=== PATIENT | male | born 1930 | race Caucasian/White ===

== ENCOUNTER 2016-11-18 21:36 | Inpatient (IN) | payer MEDICARE ==
--- NOTE | 2016-11-18 21:56 | ER Document Report ---
ED Cardiac - General Mode of Arrival: Medic Information source: Patient - HPI Patient complains to provider of: Chest tightness Was the onset of pain: Sudden When did pain begin: 18:30 Is the pain a: New problem Chest pain location: Other - left lower chest Quality of pain: Tightness <ZAHIRA HOFFMAN - Last Filed: 11/18/16 22:42> <HECTORSHELLIEKELLY - Last Filed: 11/19/16 00:39> - General Chief Complaint: Chest Pain Stated Complaint: CHEST PAIN Time Seen by Provider: 11/18/16 21:47 Notes: Patient is an 86 year old male presenting to the emergency department for left- sided chest pain. Patient's pain was onset at 18:30 while the patient was watching television. Patient states his pain is in the left-lower chest and is described as a tightness. Patient's pain is exacerbated with deep breathing but denies any cough or abdominal pain. Patient was brought in via EMS and was given 81 mg x4 of Aspirin and 0.4 mg Nitroglycerin. Patient is taking Plavix and has a cardiac history of a hypertension, hypercholesterolemia, A-fib, and stent x1 in the late 90s. Patient states he has been followed for his heart by his yeast maker in [place] and has had multiple stress tests completed. Patient has been living in this area for 1 year and is staying with his daughter. Patient does not have a yeast maker here in town but does have a PCP, Dr. Espinosa. Patient is a former smoker and tobacco user. Patient has no known drug allergies and is also not allergic to IV contrast or dye. Patient takes Plavix, Lasix, Metoprolol, Synthroid, and Allopurinol for his Gout. (ZAHIRA HOFFMAN) - Related Data Allergies/Adverse Reactions: No Known Allergies Allergy (Unverified 11/18/16 21:44) Past Medical History - General Information source: Patient - Social History Smoking Status: Former Smoker Cigarette use (# per day): No Chew tobacco use (# tins/day): No - former, quit in 1979 Smoking Education Provided: No Frequency of alcohol use: None - former Drug Abuse: None Family History: None Patient has suicidal ideation: No Patient has homicidal ideation: No - Past Medical History Cardiac Medical History: Reports: Hx Atrial Fibrillation, Hx Hypercholesterolemia, Hx Hypertension Neurological Medical History: Reports: Hx Cerebrovascular Accident - 2013 Musculoskeltal Medical History: Reports Hx Gout Past Surgical History: Reports: Hx Bowel Surgery - colon resection, Hx Cardiac Catheterization - stent x1 (), Hx Cholecystectomy <ZAHIRA HOFFMAN - Last Filed: 11/18/16 22:42> Review of Systems - Review of Systems Constitutional: No symptoms reported EENT: No symptoms reported Cardiovascular: See HPI, Chest pain Respiratory: No symptoms reported Gastrointestinal: No symptoms reported Genitourinary: No symptoms reported Male Genitourinary: No symptoms reported Musculoskeletal: No symptoms reported Skin: No symptoms reported Hematologic/Lymphatic: No symptoms reported Neurological/Psychological: No symptoms reported -: Yes All other systems reviewed and negative <ZAHIRA HOFFMAN - Last Filed: 11/18/16 22:42> Physical Exam - Vital signs Interpretation: Hypotensive, Tachycardic <ZAHIRA HOFFMAN - Last Filed: 11/18/16 22:42> <KELLY CAMACHO - Last Filed: 11/19/16 00:39> - Vital signs Vitals: Resp Pulse Ox 23 H 94 11/18/16 21:39 11/18/16 21:39 - Notes Notes: VITALS: During exam patient is tachycardic, hypotensive, and has an O2 saturation of 94-96% on RA. GENERAL: Alert, interacts well. Mild distress. HEAD: Normocephalic, atraumatic. EYES: Pupils equal, round, and reactive to light. Extraocular movements intact. ENT: Oral mucosa moist, tongue midline. NECK: Full range of motion. Supple. Trachea midline. LUNGS: Clear to auscultation bilaterally, no wheezes, rales, or rhonchi. No respiratory distress. No chest wall tenderness to palpation. HEART: Tachycardia. Irregularly irregular. No murmurs, gallops, or rubs. ABDOMEN: Soft, non-tender. Non-distended. Bowel sounds present in all 4 quadrants. EXTREMITIES: Moves all 4 extremities spontaneously. No edema, radial and dorsalis pedis pulses 2/4 bilaterally. No cyanosis. NEUROLOGICAL: Alert and oriented x3. Normal speech. PSYCH: Normal affect, normal mood. SKIN: Warm, dry, normal turgor. No rashes or lesions noted. (ZAHIRA HOFFMAN) Course - Laboratory Result Diagrams: 11/18/16 22:00 11/18/16 22:00 <ZAHIRA HOFFMAN - Last Filed: 11/18/16 22:42> - Laboratory Result Diagrams: 11/18/16 22:00 11/18/16 22:00 <KELLY CAMACHO - Last Filed: 11/19/16 00:39> - Re-evaluation Re-evalutation: 11/19/16 00:32 CBC shows slight anemia with hemoglobin 13, platelets low at 145, CMP shows elevated BUN 33, troponin negative at 0.015, proBNP elevated at 4350. Chest x- ray shows small bilateral pleural effusions and cannot exclude associated atelectasis or infiltrate in the right lung base, cardiomegaly. Given his intermittent hypotension as well as his tachycardia CT angiogram of the chest was ordered and shows small right pleural effusion and some associated airspace consolidation most consistent with atelectatic changes as well as a 2.3 cm in diameter spiculated mass in the right midlung field anteriorly which may represent focal airspace consolidation versus a mass. Family was informed of this finding. There is no pulmonary embolism. 11/19/16 00:38 Patient had received aspirin and nitroglycerin from EMS. It did slightly relieve his pain. (KELLY CAMACHO) - Vital Signs Vital signs: Temp Pulse Resp BP Pulse Ox 133 H 20 108/90 H 95 11/18/16 21:50 11/19/16 00:24 11/19/16 00:24 11/19/16 00:24 - Laboratory Laboratory results interpreted by me: 11/18/16 11/18/16 11/18/16 22:00 22:00 22:00 RBC 4.29 L Hgb 13.0 L RDW 15.5 H Plt Count 145 L Carbon Dioxide 31 H BUN 33 H ALT 20 L Creatine Kinase 53 L NT-Pro-B Natriuret Pep 4350 H Total Protein 5.9 L Albumin 3.1 L - EKG Interpretation by Me Additional EKG results interpreted by me: 11/19/16 00:36 EKG shows atrial fibrillation at a rate of 14, ranges between 74 and 138, right bundle branch block, left anterior hemiblock, there are T-wave inversions in V2 and V3, no ST segment elevations or depressions, no obvious ischemia per my interpretation. There are no old EKGs available for comparison. (KELLY CAMACHO ) Discharge <ZAHIRA HOFFMAN - Last Filed: 11/18/16 22:42> - Discharge Admitting Provider: Hospitalist - [facility] Admitted: Telemetry <KELLY CAMACHO - Last Filed: 11/19/16 00:39> - Discharge Clinical Impression: Chest pain, rule out acute myocardial infarction, Elevated brain natriuretic peptide (BNP) level Atrial fibrillation Qualifiers: Atrial fibrillation type: chronic Qualified Code(s): I48.2 - Chronic atrial fibrillation Condition: Fair Disposition: ADMITTED OBSERVATION Scribe Attestation: 11/19/16 00:38 I personally performed the services described in the documentation, reviewed and edited the documentation which was dictated to the scribe in my presence, and it accurately records my words and actions. (KELLY CAMACHO) Scribe Documentation - Scribe Written by Parth:: Parth Liang 11/18/2016 22:36 acting as scribe for :: Jaime <ZAHIRA HOFFMAN - Last Filed: 11/18/16 22:42>
[2016-11-18 22:10] LABS: HEMATOCRIT 39.1 % (37.9-51.0); HGB HCT DIFFERENCE -0.1; MEAN CORPUSCULAR HEMOGLOBIN 30.3 pg (27.0-33.4); MEAN CORPUSCULAR HGB CONC 33.2 g/dL (32.0-36.0); MEAN CORPUSCULAR VOLUME 91 fl (80-97); RED BLOOD COUNT 4.29 10^6/uL (4.35-5.55); RED CELL DISTRIBUTION WIDTH 15.5 % (11.5-14.0); WHITE BLOOD COUNT 8.8 10^3/uL (4.0-10.5)
--- NOTE | 2016-11-18 22:14 | RADIOLOGY REPORT (SQ) ---
EXAM DESCRIPTION: CHEST SINGLE VIEW COMPLETED DATE/TIME: 11/18/2016 10:07 pm REASON FOR STUDY: cp COMPARISON: None. EXAM PARAMETERS: NUMBER OF VIEWS: One view. TECHNIQUE: Single frontal radiographic view of the chest acquired. RADIATION DOSE: NA LIMITATIONS: None. FINDINGS: LUNGS AND PLEURA: There is blunting of the costophrenic angles suggesting small bilateral pleural effusions and I cannot exclude some associated atelectasis or infiltrate in the right lung ba se. MEDIASTINUM AND HILAR STRUCTURES: No masses. Contour normal. HEART AND VASCULAR STRUCTURES: Cardiac silhouette is enlarged. There is mild pulmonary vascular shaun estion. BONES: Degenerative changes are identified in the thoracic spine. HARDWARE: None in the chest. OTHER: No other significant finding. IMPRESSION: Small bilateral pleural effusions and I cannot exclude some associated atelectasis or in filtrate in the right lung base. Cardiomegaly. Other findings as noted above TECHNICAL DOCUMENTATION: JOB ID: [id number]
[2016-11-18 22:29] LABS: BAND NEUTROPHILS % (MANUAL) 3 % (3-5); BASOPHILS % (MANUAL) 0 % (0-2); EOSINOPHILS % (MANUAL) 0 % (0-6); LYMPHOCYTES % (MANUAL) 31 % (13-45); TOTAL CELLS COUNTED 100
[2016-11-18 22:30] LABS: ANISOCYTOSIS SLIGHT; HYPOCHROMASIA SLIGHT; OVALOCYTES SLIGHT; PLATELET CLUMPS PRESENT; POIKILOCYTOSIS SLIGHT
[2016-11-18 22:36] LABS: ALANINE AMINOTRANSFERASE 20 U/L (21-72); ALBUMIN 3.1 g/dL (3.5-5.0); ALKALINE PHOSPHATASE 78 U/L (38-126); ANION GAP 10 (5-19); ASPARTATE AMINO TRANSFERASE 24 U/L (17-59); BILIRUBIN,DIRECT 0.3 mg/dL (0.0-0.4); BILIRUBIN,TOTAL 0.6 mg/dL (0.2-1.3); BLOOD UREA NITROGEN 33 mg/dL (7-20); CALCIUM 8.8 mg/dL (8.4-10.2); CARBON DIOXIDE 31 mmol/L (22-30); CHLORIDE 99 mmol/L (98-107); CREATINE KINASE 53 U/L (55-170); CREATININE RESULT 0.85 mg/dL (0.52-1.25); GLUCOSE 97 mg/dL (75-110); POTASSIUM 4.3 mmol/L (3.6-5.0); SODIUM 139.8 mmol/L (137-145); TOTAL PROTEIN 5.9 g/dL (6.3-8.2)
[2016-11-18 22:48] LABS: CREATINE KINASE MB 2.01 ng/mL (<4.55); TROPONIN I 0.015 ng/mL
[2016-11-18] MEDS ORDERED: FUROSEMIDE INJ/PF 40 MG/4 ML SDV IV ONE (23:05)
--- NOTE | 2016-11-18 23:38 | RADIOLOGY REPORT (SQ) ---
EXAM DESCRIPTION: CTA CHEST COMPLETED DATE/TIME: 11/18/2016 11:23 pm REASON FOR STUDY: hypotensive, tachycardic, CP, r/o PE COMPARISON: None. TECHNIQUE: CT scan of the chest performed using helical scanning technique with dynamic intravenous contrast injection. Images reviewed with lung, soft tissue and bone windows. Reconstructed coronal and sagittal MPR images reviewed. Additional 3 dimensional post-processing performed to develop Maximal Intensity Projection images ([place] P). All images stored on PACS. All CT scanners at this facility use dose modulation, iterative reconstruction, and/or weight based d osing when appropriate to reduce radiation dose to as low as reasonably achievable (ALARA). [facility]: Dose Right [facility]: CareDose [facility]: Dose Right [facility]: Teradose 4D [facility]: [facility] CONTRAST TYPE AND DOSE: contrast/concentration: Isovue 370.00 mg/ml; Total Contrast Delivered: 100.0 ml; Total Saline Delivered: 42.0 ml RENAL FUNCTION: Creatinine 0.85 RADIATION DOSE: Up-to-date CT equipment and radiation dose reduction techniques were employed. CTDIv ol: 13.8 - 15.0 mGy. DLP: 552 mGy-cm. . LIMITATIONS: None. FINDINGS: LUNGS AND PLEURA: Small right pleural effusion is identified. There is some minimal assoc iated airspace consolidation most consistent with atelectatic changes. 2.3 cm in diameter spiculated mass is identified in the right mid lung field anteriorly which may only represent focal airspace co nsolidation however the possibility of a mass cannot be excluded. Followup is recommended. AORTA AND GREAT VESSELS: No aneurysm or dissection. HEART: Small pericardial effusion is identified. PULMONARY ARTERIES: No emboli visualized in the main pulmonary arteries or the segmental branches. HILAR AND MEDIASTINAL STRUCTURES: Calcified right hilar and mediastinal lymph nodes are identified. HARDWARE: None in the chest. UPPER ABDOMEN: No significant findings. Limited exam. THYROID AND OTHER SOFT TISSUES: No masses. No adenopathy. BONES: No acute or significant finding. 3D MIPS: Confirm above findings. OTHER: No other significant finding. IMPRESSION: No evidence for pulmonary embolic disease. Small right pleural effusion is identified w ith some associated airspace consolidation most consistent with atelectatic changes. 2.[address] spiculated mass in the right mid lung field anteriorly which may only represent focal airspace co nsolidation however the possibility of a mass cannot be excluded. Followup is recommended. Small pe ricardial effusion. Other findings as noted above TECHNICAL DOCUMENTATION: JOB ID: [id number] Quality ID # [id number]: Final reports with documentation of one or more dose reduction techniques (e.g., Au tomated exposure control, adjustment of the mA and/or kV according to patient size, use of iterative reconstruction technique) 2010 [employer]- All Rights Reserved
[2016-11-19] MEDS ORDERED: HYDRALAZINE HCL INJ/PF 20 MG/1 ML SDV IV PRN (00:40)
[2016-11-19] MEDS ORDERED: ATORVASTATIN CALCIUM 40 MG TABLET PO SCH (00:45)
[2016-11-19 00:50] LABS: PROTHROMBIN TIME 13.4 SEC (11.4-15.4)
[2016-11-19 03:15] LABS: CREATINE KINASE MB 2.52 ng/mL (<4.55); TROPONIN I 0.02 ng/mL
--- NOTE | 2016-11-19 03:35 | PDOC H&P ---
History of Present Illness Admission Date/PCP: 11/19/16 00:36 MAYE CORTEZC Patient complains of: Left-sided chest pain History of Present Illness: CHANDRIKA FLORIAN is a 86 year old male with a past medical history of remote colon cancer, gout, atrial fibrillation, coronary artery disease with stent placement in the , generalized weakness with falls, hypertension and hypothyroidism. Patient has been in his usual state of health until approximately 12 hours prior to presentation noting left-sided chest pain with deep inspiration which is sharp in nature 3 out of 5 intensity without radiation he is unable to identify alleviating factors beyond rest he denies previous episode, recent viral illness, shortness of breath, nausea, vomiting, palpitations or diaphoresis. He denies recent change in medications. In the emergency room he has a workup suggestive of congestive heart failure, a CTA chest is negative for pulmonary emboli concerning for 2.3 cm right sided spiculated mass and small effusion. Also small pericardial effusion. He is referred to the hospitalist for admission. He is currently pain-free. Past Medical History Cardiac Medical History: Reports: Atrial Fibrillation, Congestive Heart Failure , Hyperlipidema, Hypertension Pulmonary Medical History: Reports: None Neurological Medical History: Reports: None Endocrine Medical History: Reports: Hypothyroidism Malignancy Medical History: Reports: Colorectal Cancer Musculoskeltal Medical History: Reports: Gout Past Surgical History Past Surgical History: Reports: Cardiac Catheterization - stent x1 (), Cholecystectomy, Other - Partial colectomy Social History Information Source: Patient Lives with: Family Smoking Status: Former Smoker Frequency of Alcohol Use: None Hx Recreational Drug Use: No Drugs: None - Advance Directive Resuscitation Status: Full Code Family History Family History: CAD, Hypertension, Other - Dementia Parental Family History Reviewed: Yes Children Family History Reviewed: Yes Sibling(s) Family History Reviewed.: Yes Medication/Allergy Home Medications: Allopurinol [Zyloprim 300 mg Tablet] 300 mg PO DAILY 11/19/16 Clopidogrel Bisulfate [Plavix 75 mg Tablet] 75 mg PO DAILY 11/19/16 Clopidogrel Bisulfate [Plavix 75 mg Tablet] 75 mg PO DAILY 11/19/16 Furosemide [Lasix] 40 mg PO DAILY 11/19/16 Levothyroxine Sodium [Synthroid 50 Mcg Tablet] 50 mcg PO DAILY 11/19/16 Metoprolol Succinate [Toprol Xl 50 mg Tab.sr] 150 mg PO DAILY 11/19/16 Allergies/Adverse Reactions: No Known Allergies Allergy (Unverified 11/18/16 21:44) Review of Systems Constitutional: ABSENT: chills, fever(s), headache(s), weight gain, weight loss Eyes: ABSENT: visual disturbances Ears: ABSENT: hearing changes Cardiovascular: ABSENT: chest pain, dyspnea on exertion, edema, orthropnea, palpitations Respiratory: ABSENT: cough, hemoptysis Gastrointestinal: ABSENT: abdominal pain, constipation, diarrhea, hematemesis, hematochezia, nausea, vomiting Genitourinary: ABSENT: dysuria, hematuria Musculoskeletal: ABSENT: joint swelling Integumentary: ABSENT: rash, wounds Neurological: ABSENT: abnormal gait, abnormal speech, confusion, dizziness, focal weakness, syncope Psychiatric: ABSENT: anxiety, depression, homidical ideation, suicidal ideation Endocrine: ABSENT: cold intolerance, heat intolerance, polydipsia, polyuria Hematologic/Lymphatic: ABSENT: easy bleeding, easy bruising Physical Exam Vital Signs: Temp Pulse Resp BP Pulse Ox 97.1 F 114 H 18 123/67 98 11/19/16 02:09 11/19/16 02:09 11/19/16 02:09 11/19/16 02:09 11/19/16 02:09 General appearance: PRESENT: no acute distress, cooperative, well-developed, well-nourished Head exam: PRESENT: atraumatic, normocephalic Eye exam: PRESENT: conjunctiva pink, EOMI, PERRLA. ABSENT: scleral icterus Ear exam: PRESENT: normal external ear exam Mouth exam: PRESENT: moist, tongue midline Neck exam: ABSENT: carotid bruit, JVD, lymphadenopathy, thyromegaly Respiratory exam: PRESENT: clear to auscultation jonathon, crackles. ABSENT: accessory muscle use, chest wall tenderness, decreased breath sounds, rales, rhonchi, wheezes Cardiovascular exam: PRESENT: irregular rhythm, tachycardia. ABSENT: diastolic murmur, rubs, systolic murmur Pulses: PRESENT: normal dorsalis pedis pul Vascular exam: PRESENT: normal capillary refill GI/Abdominal exam: PRESENT: normal bowel sounds, soft. ABSENT: distended, guarding, mass, organolmegaly, rebound, tenderness Rectal exam: PRESENT: deferred Extremities exam: PRESENT: full ROM. ABSENT: calf tenderness, clubbing, pedal edema Neurological exam: PRESENT: alert, awake, oriented to person, oriented to place , oriented to time, oriented to situation, CN II-XII grossly intact. ABSENT: motor sensory deficit Psychiatric exam: PRESENT: appropriate affect, normal mood. ABSENT: homicidal ideation, suicidal ideation Skin exam: PRESENT: dry, intact, warm. ABSENT: cyanosis, rash Results Laboratory Results: 11/19/16 02:02 CK-MB (CK-2) 2.52 Troponin I 0.020 Impressions: Chest X-Ray 11/18/16 21:38 IMPRESSION: Small bilateral pleural effusions and I cannot exclude some associated atelectasis or infiltrate in the right lung base. Cardiomegaly. Other findings as noted above Chest/Abdomen CTA 11/18/16 22:44 IMPRESSION: No evidence for pulmonary embolic disease. Small right pleural effusion is identified with some associated airspace consolidation most consistent with atelectatic changes. 2.3 cm in diameter spiculated mass in the right mid lung field anteriorly which may only represent focal airspace consolidation however the possibility of a mass cannot be excluded. Followup is recommended. Small pericardial effusion. Other findings as noted above Assessment & Plan - Diagnosis (1) Chest pain Is this a current diagnosis for this admission?: YesPlan: Atypical chest pain though the patient's pain is atypical and more suggestive of pericarditis there are multiple risk factors for coronary artery disease and subsequently will observe and evaluation of acute coronary syndrome versus coronary artery disease with anginal equivalents. Cardiac monitoring blood pressure Q6 hours ,TSH, lipid profile, serial cardiac enzymes and cardiac stress test. Given history of colon cancer, new spiculated lung mass and small pericardial effusion I suspect this is his source of pain. Will obtain ESR, 2D echo, oncology consultation. (2) Congestive heart failure Is this a current diagnosis for this admission?: YesPlan: Likely secondary to uncontrolled atrial fibrillation will optimize rate with gentle diuresis as he is already prerenal. (3) Pleuritic chest pain Is this a current diagnosis for this admission?: YesPlan: Given history of colon cancer, new spiculated lung mass and small pericardial effusion I suspect this is his source of pain. Will obtain ESR, 2D echo, oncology consultation. (4) Lung mass Is this a current diagnosis for this admission?: YesPlan: Given history of colon cancer, new spiculated lung mass and small pericardial effusion I suspect this is his source of pain. Will obtain ESR, 2D echo, oncology consultation. (5) Pericardial effusion Is this a current diagnosis for this admission?: YesPlan: Given history of colon cancer, new spiculated lung mass and small pericardial effusion I suspect this is his source of pain. Will obtain ESR, 2D echo, oncology consultation. (6) Atrial fibrillation Qualifiers: Atrial fibrillation type: chronic Qualified Code(s): I48.2 - Chronic atrial fibrillation Is this a current diagnosis for this admission?: YesPlan: Continue home Lopressor with as needed diltiazem. Patient has recurrent falls and is not a candidate for anticoagulation. - Time Time Spent: 50 to 70 Minutes - Inpatient Certification Medical Necessity: Need Close Monitoring Due to Risk of Patient Decompensation
[2016-11-19] MEDS ORDERED: COLCHICINE 0.6 MG TABLET PO ONE (03:42)
[2016-11-19] MEDS ORDERED: DILTIAZEM HCL 30 MG TABLET PO ONE (03:42)
[2016-11-19] MEDS ORDERED: HEPARIN SOD (PORCINE) 5,000 UNIT/ML 1 ML SYRINGE SUBCUT SCH (06:00)
[2016-11-19] MEDS ORDERED: FUROSEMIDE INJ/PF 40 MG/4 ML SDV ONE (07:19)
--- NOTE | 2016-11-19 07:48 | EKG REPORT ---
SEVERITY:- ABNORMAL ECG - ATRIAL FIBRILLATION, V-RATE 74-138 RBBB AND LAFB : Confirmed by: Ankur Jaramillo MD 19-Nov-2016 07:47:44
[2016-11-19 08:11] LABS: ARTERIAL BLOOD BASE EXCESS 3.3 mmol/L; ARTERIAL BLOOD O2 SATURATION 91.5 % (94-98)
[2016-11-19] MEDS ORDERED: PROPOFOL 100 ML IV ONE (08:23)
[2016-11-19] MEDS ORDERED: PHENYLEPHRINE HCL INJ/PF 10 MG/1 ML SDV ONE (08:26)
[2016-11-19] MEDS ORDERED: NORMAL SALINE 1000 ML 1,000 ML IV ONE (08:45)
[2016-11-19] MEDS ORDERED: PROPOFOL INJ 200 MG/20 ML VIAL IV ONE (09:09)
[2016-11-19 09:10] LABS: HEMATOCRIT 42.2 % (37.9-51.0); HEMOGLOBIN 13.7 g/dL (13.5-17.0); HGB HCT DIFFERENCE -1.1; MEAN CORPUSCULAR HEMOGLOBIN 30.2 pg (27.0-33.4); MEAN CORPUSCULAR HGB CONC 32.4 g/dL (32.0-36.0); MEAN CORPUSCULAR VOLUME 93 fl (80-97); RED BLOOD COUNT 4.54 10^6/uL (4.35-5.55); RED CELL DISTRIBUTION WIDTH 15.6 % (11.5-14.0)
[2016-11-19] MEDS ORDERED: PHARMACY COMMUNICATION ORDER MC NR (09:15)
[2016-11-19 09:17] LABS: CHOLESTEROL 152.16 mg/dL (0-200); Direct HDL 33 mg/dL (>40); TRIGLYCERIDES 122 mg/dL (<150)
[2016-11-19] MEDS: DEXTROSE 5%-WATER 250 ML with PHENYLEPHRINE HCL 40 MG IV PRN ×8 (09:23→21:47)
[2016-11-19 09:26] LABS: CREATINE KINASE MB 2.38 ng/mL (<4.55); TROPONIN I 0.065 ng/mL
[2016-11-19 09:28] LABS: DIRECT LDL 96 mg/dL (<100)
[2016-11-19 09:30] LABS: ANISOCYTOSIS SLIGHT; BAND NEUTROPHILS % (MANUAL) 4 % (3-5); BASOPHILS % (MANUAL) 0 % (0-2); EOSINOPHILS % (MANUAL) 2 % (0-6); LYMPHOCYTES % (MANUAL) 3 % (13-45); OVALOCYTES SLIGHT; POIKILOCYTOSIS SLIGHT; POLYCHROMASIA SLIGHT; TOTAL CELLS COUNTED 100
[2016-11-19] MEDS ORDERED: NOREPINEPHRINE BITARTRATE INJ/PF 4 MG/4 ML SDV IV ONE (09:46)
--- NOTE | 2016-11-19 09:50 | RADIOLOGY REPORT (SQ) ---
EXAM DESCRIPTION: CHEST SINGLE VIEW COMPLETED DATE/TIME: 11/19/2016 9:25 am REASON FOR STUDY: ETT and NGT placement confirmation COMPARISON: 11/18/2016 EXAM PARAMETERS: NUMBER OF VIEWS: One view TECHNIQUE: Single frontal radiograph of the chest. RADIATION DOSE: N/A LIMITATIONS: None. FINDINGS: TEMPORARY SUPPORT DEVICES:Endotracheal tube is noted measures approximately 4.4 cm from th e yifan. Nasogastric tube identified with tip in side hole below level of diaphragm projecting in t he left upper quadrant. EKG leads overlie the chest. LUNGS AND PLEURA: There is diffuse airspace opacities noted throughout the lungs most prominent the l gilda bases and in the left retrocardiac region. There is pulmonary vascular congestion interstitial e chapis. No pneumothorax identified. Mild blunting of both costophrenic angles likely representing sma ll effusions. MEDIASTINUM AND HILAR STRUCTURES: No masses. Contour normal. Arch calcifications HEART AND VASCULAR STRUCTURES: Cardiomegaly. BONES: No acute findings. OTHER: No other significant finding. IMPRESSION: 1. Support tubes and lines as above. 2. Cardiomegaly. Pulmonary vascular congestion interstitial edema. Diffuse airspace opacities note d throughout the lungs most prominent in the lung bases and retrocardiac region on the left. Small b ilateral pleural effusions. Disease has progressed in comparison the prior radiograph. TECHNICAL DOCUMENTATION: JOB ID: [id number] [employer]- All Rights Reserved
--- NOTE | 2016-11-19 09:51 | RADIOLOGY REPORT (SQ) ---
EXAM DESCRIPTION: KUB/ABDOMEN (SINGLE VIEW) COMPLETED DATE/TIME: 11/19/2016 9:25 am REASON FOR STUDY: Check Placement of NG Tube, ETT COMPARISON: None. NUMBER OF VIEWS: One view. TECHNIQUE: Supine radiographic image of the abdomen acquired. LIMITATIONS: None. FINDINGS: BOWEL GAS PATTERN: Normal bowel gas pattern. No dilated loops. CALCIFICATIONS: No suspicious calcifications. SOFT TISSUES: No gross mass or suggestion of organomegaly. HARDWARE: NG tube tip in subtle project over the room both upper quadrant. BONES: No acute fracture. No worrisome bone lesions. OTHER: Diffuse airspace disease noted in the lungs. IMPRESSION: NG tube appears to be in proper position. No acute abnormality identified within the ab domen. Diffuse airspace opacity noted the lung bases. TECHNICAL DOCUMENTATION: JOB ID: [id number] [employer]- All Rights Reserved
[2016-11-19 09:59] LABS: ARTERIAL BLOOD BASE EXCESS 3.7 mmol/L
[2016-11-19] MEDS ORDERED: METOPROLOL SUCCINATE 50 MG TAB.SR.24H PO SCH (10:00)
[2016-11-19] MEDS ORDERED: LEVOTHYROXINE SODIUM 0.05 MG TABLET NG SCH (10:00)
[2016-11-19] MEDS ORDERED: FUROSEMIDE 40 MG TABLET PO SCH (10:00)
[2016-11-19] MEDS ORDERED: DEXTROSE 5%-WATER 250 ML with NOREPINEPHRINE BITARTRATE 4 MG IV PRN ×2 (10:05)
[2016-11-19] MEDS: NORMAL SALINE 1000 ML 1,000 ML IV PRN ×2 (10:19→15:28)
[2016-11-19] MEDS ORDERED: MIDAZOLAM 2 MG/2 ML INJ IV ONE (10:21)
[2016-11-19] MEDS ORDERED: MIDAZOLAM 2 MG/2 ML INJ IV PRN (10:21)
[2016-11-19] MEDS ORDERED: DIGOXIN INJ 0.5 MG/2 ML AMPULE IV ONE (10:22)
[2016-11-19] MEDS ORDERED: DIGOXIN INJ 0.5 MG/2 ML AMPULE ONE (10:37)
[2016-11-19] MEDS ORDERED: MIDAZOLAM HCL 100 ML IV ONE (10:38)
--- NOTE | 2016-11-19 10:54 | PDOC PROGRESS REPORT ---
Subjective Progress Note for:: 11/19/16 Subjective:: The patient this morning developed hypoxia and hemoptysis. He was transferred to the intensive care unit for close monitoring. He was noted to have a 2 cm right middle lobe lung nodule yesterday. Physical Exam Vital Signs: Temp Pulse Resp BP Pulse Ox 100.6 F H 106 H 12 92/65 L 100 11/19/16 10:00 11/19/16 10:00 11/19/16 10:06 11/19/16 10:06 11/19/16 10:06 Intake & Output 11/18/16 11/19/16 11/20/16 06:59 06:59 06:59 Intake Total 5 Output Total 350 Balance 5 -350 Weight 75 kg General appearance: PRESENT: mild distress Eye exam: PRESENT: conjunctiva pink. ABSENT: scleral icterus Mouth exam: PRESENT: moist, tongue midline Neck exam: ABSENT: JVD Respiratory exam: PRESENT: rhonchi - Rhonchi bilaterally.. ABSENT: rales, wheezes Cardiovascular exam: PRESENT: irregular rhythm, tachycardia. ABSENT: diastolic murmur, rubs, systolic murmur GI/Abdominal exam: PRESENT: normal bowel sounds, soft. ABSENT: distended, guarding, mass, organolmegaly, rebound, tenderness Extremities exam: ABSENT: calf tenderness, clubbing, pedal edema Neurological exam: PRESENT: awake, oriented to person, oriented to place. ABSENT: oriented to time, oriented to situation Psychiatric exam: PRESENT: anxious Skin exam: PRESENT: dry, intact, warm. ABSENT: cyanosis, rash Results Laboratory Results: 11/19/16 08:49 11/19/16 11/19/16 11/19/16 02:02 02:02 08:00 WBC RBC Hgb Hct MCV MCH MCHC RDW Plt Count Seg Neutrophils % Lymphocytes % Monocytes % Eosinophils % Basophils % Absolute Neutrophils Absolute Lymphocytes Absolute Monocytes Absolute Eosinophils Absolute Basophils Carbonic Acid 1.21 HCO3/H2CO3 Ratio 22:1 ABG pH 7.45 ABG pCO2 40.3 ABG pO2 58.4 L ABG HCO3 27.5 H ABG O2 Saturation 91.5 L ABG Base Excess 3.3 FiO2 100% Magnesium 2.0 Triglycerides Cholesterol LDL Cholesterol Direct VLDL Cholesterol HDL Cholesterol TSH 3.14 11/19/16 11/19/16 11/19/16 08:49 08:49 09:40 WBC 13.0 H RBC 4.54 Hgb 13.7 Hct 42.2 MCV 93 MCH 30.2 MCHC 32.4 RDW 15.6 H Plt Count 183 Seg Neutrophils % Not Reportable Lymphocytes % Not Reportable Monocytes % Not Reportable Eosinophils % Not Reportable Basophils % Not Reportable Absolute Neutrophils Not Reportable Absolute Lymphocytes Not Reportable Absolute Monocytes Not Reportable Absolute Eosinophils Not Reportable Absolute Basophils Not Reportable Carbonic Acid 1.44 H HCO3/H2CO3 Ratio 20:1 ABG pH 7.41 ABG pCO2 47.7 H ABG pO2 109.3 H ABG HCO3 29.2 H ABG O2 Saturation 98.0 ABG Base Excess 3.7 FiO2 40% Magnesium Triglycerides 122 Cholesterol 152.16 LDL Cholesterol Direct 96 VLDL Cholesterol 24.0 HDL Cholesterol 33 L TSH 11/19/16 11/19/16 02:02 08:49 CK-MB (CK-2) 2.52 2.38 Troponin I 0.020 0.065 Impressions: Chest/Abdomen CTA 11/18/16 22:44 IMPRESSION: No evidence for pulmonary embolic disease. Small right pleural effusion is identified with some associated airspace consolidation most consistent with atelectatic changes. 2.3 cm in diameter spiculated mass in the right mid lung field anteriorly which may only represent focal airspace consolidation however the possibility of a mass cannot be excluded. Followup is recommended. Small pericardial effusion. Other findings as noted above Chest X-Ray 11/19/16 09:00 IMPRESSION: 1. Support tubes and lines as above. 2. Cardiomegaly. Pulmonary vascular congestion interstitial edema. Diffuse airspace opacities noted throughout the lungs most prominent in the lung bases and retrocardiac region on the left. Small bilateral pleural effusions. Disease has progressed in comparison the prior radiograph. KUB X-Ray 11/19/16 09:01 IMPRESSION: NG tube appears to be in proper position. No acute abnormality identified within the abdomen. Diffuse airspace opacity noted the lung bases. Assessment & Plan - Diagnosis (1) Chest pain Is this a current diagnosis for this admission?: YesPlan: Patient has had some elevation in his troponins however they are not in the significant range. (2) Atrial fibrillation Qualifiers: Atrial fibrillation type: chronic Qualified Code(s): I48.2 - Chronic atrial fibrillation Is this a current diagnosis for this admission?: YesPlan: The patient developed some hypotension associated with hemoptysis. Has been given IV fluids. (3) Congestive heart failure Is this a current diagnosis for this admission?: YesPlan: Patient has some questionable congestive heart failure symptoms however given his hypotension he has been given some fluid boluses. His pressures have improved however he does have hemoptysis. It is presumed that hemoptysis is secondary to the lung mass and not because of congestive heart failure. Pulmonary medicine has been consulted. (4) Lung mass Is this a current diagnosis for this admission?: YesPlan: Coronary medicine has been consulted for consideration of a bronchoscopy. Patient will go ahead and be intubated given his worsening hypoxia. - Time Time Spent with patient: 25-34 minutes - Inpatient Certification Medical Necessity: Need Close Monitoring Due to Risk of Patient Decompensation
[2016-11-19] MEDS ORDERED: SUCCINYLCHOLINE CHLORIDE INJ 200 MG/10 ML VIAL ONE (11:28)
--- NOTE | 2016-11-19 11:56 | RADIOLOGY REPORT (SQ) ---
EXAM DESCRIPTION: CHEST SINGLE VIEW COMPLETED DATE/TIME: 11/19/2016 11:42 am REASON FOR STUDY: ETT and central line placement COMPARISON: 11/19/2016 at 0914 hours EXAM PARAMETERS: NUMBER OF VIEWS: One view TECHNIQUE: Single frontal radiograph of the chest. RADIATION DOSE: N/A LIMITATIONS: None. FINDINGS: TEMPORARY SUPPORT DEVICES:Endotracheal nasogastric tubes are unchanged. EKG leads overlie the chest. There is a right IJ central venous catheter with tip in the mid SVC. LUNGS AND PLEURA: Unchanged appearance of the visual a lungs. No pneumothorax MEDIASTINUM AND HILAR STRUCTURES: Stable HEART AND VASCULAR STRUCTURES: Stable BONES: No acute findings. OTHER: No other significant finding. IMPRESSION: 1. Support tubes and lines as above. 2. No pneumothorax post central line insertion. Visualized lungs otherwise appear unchanged. TECHNICAL DOCUMENTATION: JOB ID: [id number] [employer]- All Rights Reserved
[2016-11-19] MEDS: PROPOFOL 100 ML IV PRN ×2 (12:29→21:48)
[2016-11-19] MEDS: DOCUSATE SODIUM 100 MG CAPSULE PO SCH ×2 (12:30→16:56)
[2016-11-19] MEDS: METOPROLOL TARTRATE 50 MG TABLET NG SCH ×2 (12:30→21:43)
[2016-11-19] MEDS: CLOPIDOGREL BISULFATE 75 MG TABLET NG SCH (12:32)
[2016-11-19] MEDS ORDERED: NORMAL SALINE INJ/PF 0.9% 10 ML SDV IV PRN (13:00)
--- NOTE | 2016-11-19 13:42 | RADIOLOGY REPORT (SQ) ---
EXAM DESCRIPTION: CT HEAD WITHOUT COMPLETED DATE/TIME: 11/19/2016 1:24 pm REASON FOR STUDY: anisocoria COMPARISON: None. TECHNIQUE: Axial images acquired through the brain without intravenous contrast. Images reviewed wi th bone, brain and subdural windows. Images stored on PACS. All CT scanners at this facility use dose modulation, iterative reconstruction, and/or weight based d osing when appropriate to reduce radiation dose to as low as reasonably achievable (ALARA). [facility]: Dose Right [facility]: CareDose [facility]: Dose Right [facility]: Teradose 4D [facility]: Smart [place] RADIATION DOSE: Up-to-date CT equipment and radiation dose reduction techniques were employed. CTDIv ol: 49.0 mGy. DLP: 881 mGy-cm. mGy. LIMITATIONS: None. FINDINGS: VENTRICLES: Normal size and contour. CEREBRUM: No masses. No hemorrhage. No midline shift. Mild hypodensity seen in the supratentorial white matter consistent chronic microvascular ischemic disease changes. No evidence for acute infarc tion. CEREBELLUM: No masses. No hemorrhage. No alteration of density. No evidence for acute infarction. EXTRAAXIAL SPACES: No fluid collections. No masses. ORBITS AND GLOBE: No intra- or extraconal masses. Normal contour of globe without masses. CALVARIUM: No fracture. PARANASAL SINUSES: No fluid or mucosal thickening. SOFT TISSUES: No mass or hematoma. OTHER: Endotracheal nasogastric tubes partially visualized. IMPRESSION: No acute intracranial abnormality identified. Chronic microvascular ischemic disease ch anges noted in the supratentorial white matter. TECHNICAL DOCUMENTATION: JOB ID: [id number] Quality ID # [id number]: Final reports with documentation of one or more dose reduction techniques (e.g., Au tomated exposure control, adjustment of the mA and/or kV according to patient size, use of iterative reconstruction technique) 2010 [employer]- All Rights Reserved
--- NOTE | 2016-11-19 13:59 | PDOC CONSULTATION ---
Consultation Consult Date: 11/19/16 Attending physician:: VERA DEJESUS Consult reason:: hemoptysis/resp failure History of Present Illness Admission Date/PCP: 11/19/16 00:36 DAISY CORTEZ History of Present Illness: CHANDRIKA FLORIAN is a 86 year old male with complaint until approximately 12 hours prior to presentation noting left-sided chest pain with deep inspiration which is sharp in nature 3 out of 5 intensity without radiation. he is unable to identify alleviating factors beyond rest he denies recent viral illness, nausea , vomiting, palpitations or diaphoresis. He does admit to some increasing shortness of breath his ED workup was suggestive of congestive heart failure but negative CTA for pulmonary emboli. His CTA was also concerning for a 2.3 cm right sided spiculated mass with a small effusion and a small pericardial effusion. He has a significant history of smoking in the past. Because of his progressive dyspnea associated with some hemoptysis he was brought to the ICU and started on BiPAP; he subsequently was intubated. He also suffers from chronic atrial fibrillation and prior history of colon cancer. Past Medical History Cardiac Medical History: Reports: Atrial Fibrillation, Congestive Heart Failure , Hyperlipidema, Hypertension Pulmonary Medical History: Reports: None Neurological Medical History: Reports: None Endocrine Medical History: Reports: Hypothyroidism Malignancy Medical History: Reports: Colorectal Cancer Musculoskeltal Medical History: Reports: Gout Past Surgical History Past Surgical History: Reports: Cardiac Catheterization - stent x1 (), Cholecystectomy, Other - Partial colectomy Social History Information Source: Relative, [facility] Records Lives with: Family Smoking Status: Former Smoker Passive smoke exposure as: Both Frequency of Alcohol Use: None Hx Recreational Drug Use: No Drugs: None - Advance Directive Resuscitation Status: Full Code Family History Family History: CAD, Hypertension, Other - Dementia Parental Family History Reviewed: No Children Family History Reviewed: No Sibling(s) Family History Reviewed.: No Medication/Allergy Home Medications: Allopurinol [Zyloprim 300 mg Tablet] 300 mg PO DAILY 11/19/16 Clopidogrel Bisulfate [Plavix 75 mg Tablet] 75 mg PO DAILY 11/19/16 Clopidogrel Bisulfate [Plavix 75 mg Tablet] 75 mg PO DAILY 11/19/16 Furosemide [Lasix] 40 mg PO DAILY 11/19/16 Levothyroxine Sodium [Synthroid 50 Mcg Tablet] 50 mcg PO DAILY 11/19/16 Metoprolol Succinate [Toprol Xl 50 mg Tab.sr] 150 mg PO DAILY 11/19/16 Allergies/Adverse Reactions: No Known Allergies Allergy (Unverified 11/18/16 21:44) Review of Systems ROS unobtainable: Other - significant distress Physical Exam Vital Signs: Temp Pulse Resp BP Pulse Ox 97.5 F 115 H 17 123/67 94 11/19/16 02:42 11/19/16 02:42 11/19/16 02:42 11/19/16 02:09 11/19/16 02:42 Intake & Output 11/18/16 11/19/16 11/20/16 06:59 06:59 06:59 Intake Total 5 Balance 5 Weight 75 kg General appearance: PRESENT: no acute distress, disheveled, thin, well-developed Head exam: PRESENT: atraumatic, normocephalic Eye exam: PRESENT: conjunctiva pale Mouth exam: PRESENT: dry mucosa, neck supple, tongue midline Neck exam: ABSENT: carotid bruit, JVD, lymphadenopathy, thyromegaly Respiratory exam: PRESENT: decreased breath sounds, prolonged expiratory phas, rales, rhonchi, symmetrical, unlabored Cardiovascular exam: PRESENT: irregular rhythm Pulses: PRESENT: normal radial pulses GI/Abdominal exam: PRESENT: normal bowel sounds, soft. ABSENT: distended, guarding, mass, organolmegaly, rebound, tenderness Rectal exam: PRESENT: deferred Gentrourinary exam: PRESENT: indwelling catheter Musculoskeletal exam: PRESENT: normal inspection Skin exam: PRESENT: dry, warm Results Laboratory Results: 11/19/16 11/19/16 11/19/16 02:02 02:02 08:00 Carbonic Acid 1.21 HCO3/H2CO3 Ratio 22:1 ABG pH 7.45 ABG pCO2 40.3 ABG pO2 58.4 L ABG HCO3 27.5 H ABG O2 Saturation 91.5 L ABG Base Excess 3.3 FiO2 100% Magnesium 2.0 TSH 3.14 11/19/16 02:02 CK-MB (CK-2) 2.52 Troponin I 0.020 Impressions: Chest X-Ray 11/18/16 21:38 IMPRESSION: Small bilateral pleural effusions and I cannot exclude some associated atelectasis or infiltrate in the right lung base. Cardiomegaly. Other findings as noted above Chest/Abdomen CTA 11/18/16 22:44 IMPRESSION: No evidence for pulmonary embolic disease. Small right pleural effusion is identified with some associated airspace consolidation most consistent with atelectatic changes. 2.3 cm in diameter spiculated mass in the right mid lung field anteriorly which may only represent focal airspace consolidation however the possibility of a mass cannot be excluded. Followup is recommended. Small pericardial effusion. Other findings as noted above Assessment & Plan - Diagnosis (1) Atrial fibrillation Qualifiers: Atrial fibrillation type: chronic Qualified Code(s): I48.2 - Chronic atrial fibrillation Is this a current diagnosis for this admission?: YesPlan: Patient is hypotensive we will hold metoprolol and initiate some digoxin (2) Chest pain, rule out acute myocardial infarction Is this a current diagnosis for this admission?: YesPlan: History of coronary artery disease with stents (3) Congestive heart failure Is this a current diagnosis for this admission?: Yes (4) Lung mass Is this a current diagnosis for this admission?: YesPlan: Patient will certainly will need a lung biopsy currently patient is on aspirin and Plavix for her coronary artery stents we will devise a plan where integrity of the stents will not be compromise and we will can also proceed to get a tissue,a primary lung malignancy is consistent with his history of smoking, however metastatic disease would also be remotely possible as well - Time Critical Time spent with patient: 35 or more minutes - discussed with RN,RT family and PCP
--- NOTE | 2016-11-19 14:01 | PDOC PROGRESS REPORT ---
Bedside Procedure - Central Line Right Internal jugular Time completed: 11:30 Consent obtained: Yes Central line pre-insertion: Sterile PPE donned, Betadine prep applied, Chloraprep applied, Sterile drapes applied Central line lumen type: Triple Anesthetic type: 1% Lidocaine Ultrasound guided: No Line secured with sutures: Yes Central line post-insertion: Blood return from lumens, Biopatch applied, Sutured , Sterile dressing applied, Position confirmed w/ CXR Number of attempts: 1 Complications: No
[2016-11-19 14:52] LABS: ANION GAP 9 (5-19); BLOOD UREA NITROGEN 29 mg/dL (7-20); CALCIUM 8.3 mg/dL (8.4-10.2); CARBON DIOXIDE 29 mmol/L (22-30); CHLORIDE 101 mmol/L (98-107); CREATINE KINASE 109 U/L (55-170); CREATININE RESULT 0.86 mg/dL (0.52-1.25); GLUCOSE 143 mg/dL (75-110); SODIUM 138.9 mmol/L (137-145)
[2016-11-19 15:04] LABS: CREATINE KINASE MB 2.91 ng/mL (<4.55)
[2016-11-19 15:08] LABS: POTASSIUM 3.3 mmol/L (3.6-5.0)
[2016-11-19 15:41] LABS: TROPONIN I 0.404 ng/mL
--- NOTE | 2016-11-19 16:28 | CONSULTATION REPORT E ---
Consultation Report NAME: CHANDRIKA FLORIAN : 1930 AGE: 86Y DATE: 11/19/2016 604 A TO: MARY CABRERA M.D. FROM: HESHAM SCHULTZ M.D. Requesting Physician REASON FOR CONSULTATION: Right lung mass. CONSULTATION REPORT: The patient is an 86-year-old man who was admitted on 11/19/2016. He had presented with complaint of left-sided chest pain. He has a prior history of colon cancer. He also has a history of coronary artery disease with stent placement in the . He was doing well until just prior to presentation, when he developed severe chest pain. In the emergency room, he had a CTA chest done that showed small right pleural effusion, a 2.3 cm spiculated mass right mid-lung field suggestive of possible air-space consolidation versus mass. He also had a chest x-ray since admission that showed diffuse air-space opacities noted throughout both lungs, most prominent in the lung bases, retrocardiac region to the left, small bilateral pleural effusion. He was admitted and while on the medical floor, he appeared to have gone into worsened respiratory distress and was transferred to the ICU. He is presently intubated and sedated. PAST MEDICAL HISTORY: 1. As stated above, history of colon cancer. 2. Atrial fibrillation. 3. Congestive heart failure. 4. History of coronary artery disease. PAST SURGICAL HISTORY: 1. Surgery for his colon cancer. 2. Cardiac catheterization and stent placement in 1989. 3. Cholecystectomy. MEDICATIONS AT HOME: 1. Allopurinol 2. Clopidogrel. 3. Furosemide. 4. Synthroid. 5. Metoprolol. ALLERGIES: He has no known drug allergies. PHYSICAL EXAMINATION: GENERAL: He is an elderly man. He is intubated as dictated, appears to be breathing comfortably. IMAGIN. Chest x-ray confirms bilateral pleural effusion, cardiomegaly. 2. CT chest, no evidence of pulmonary emboli, small right pleural effusion, a 2.3 cm diameter spiculated mass in the right mid-lung field. IMPRESSION AND PLAN: The patient is an 86-year-old man who was admitted with chest pain. During his evaluation process, he was found to have a right lung mass suggestive of malignancy. He is presently being worked up for this. I agree with the plan for bronchoscopy and possible biopsy of the suspicious lesion. I will await the results of the biopsy. Hopefully, his clinical condition improves. If this is consistent with malignancy, primary versus metastatic, he will be staged. *------* were discussed with him his treatment options, prognosis and treatments that may be indicated. I thank you for this consultation and allowing me to part of his care. DICTATING PHYSICIAN: MARY CABRERA M.D. [id number] [id number] ID: [id number] JOB#: [id number] ACCT: [id number] cc:MARY CABRERA M.D. >
[2016-11-19] MEDS: DIGOXIN INJ 0.5 MG/2 ML AMPULE IV SCH (16:59)
[2016-11-19] MEDS ORDERED: POTASSI CL 20 MEQ/50 ML RIDER 50 ML IV ONE (17:00)
[2016-11-19] MEDS: PIPERACILLIN SODIUM/TAZOBACTAM 3.375 GM in NORMAL SALINE 100 ML IV SCH (18:10)
[2016-11-19] MEDS: MIDAZOLAM HCL 100 ML IV PRN (18:11)
--- NOTE | 2016-11-19 19:09 | EKG REPORT ---
SEVERITY:- ABNORMAL ECG - ATRIAL FIBRILLATION, V-RATE 57-105 RBBB AND LAFB LATERAL INFARCT, AGE INDETERMINATE : Confirmed by: Ankur Jaramillo MD 19-Nov-2016 19:08:42
--- NOTE | 2016-11-19 19:21 | XCELERA REPORT ---
[address] [address] Transthoracic Echocardiogram Report Name: CHANDRIKA FLORIAN Age: 86 yrs Gender: Male : 1930 Patient Status: Inpatient Patient Location: ICU\S\604\S\A Study Date: 11/19/2016 02:21 PM Height: 69 in Weight: 165 lb BSA: 1.9 m2 Procedure: A complete two-dimensional transthoracic echocardiogram was performed (2D, M-mode, spectral and color flow Doppler). The study was technically adequate with some images being suboptimal in quality. Reason For Study: CP, CHF Ordering Physician: HESHAM SCHULTZ Performed By: Danita Torres Interpretation Summary The left ventricular ejection fraction is normal. There is apical wall akinesis There is moderate concentric left ventricular hypertrophy. The left ventricle is grossly normal size. The right ventricular systolic function is normal. The left atrium is mildly dilated. Borderline right atrial enlargement. There is a trace amount of mitral regurgitation There is no mitral valve stenosis. No aortic regurgitation is present. There is no aortic valve stenosis There is a trace or physiologic amount of tricuspid regurgitation Tricuspid regurgitation jet envelope not well defined to measure RV systolic pressure accurately. Minimal pericardial effusion. MMode/2D Measurements \T\ Calculations RVDd: 2.7 cm LVIDd: 4.4 cm FS: 33.6 % Ao root diam: 3.8 cm IVSd: 1.4 cm LVIDs: 2.9 cm EDV(Teich): 88.9 ml LVPWd: 1.1 cm ESV(Teich): 33.3 ml Ao root area: 11.3 cm2 EF(Teich): 62.6 % Doppler Measurements \T\ Calculations Ao V2 max: LV V1 max PG: PA V2 max: PI end-d david: 134.8 cm/sec 2.7 mmHg 72.3 cm/sec 104.6 cm/sec Ao max P.3 mmHgLV V1 max: PA max P.7 cm/sec 2.1 mmHg TR max david: 225.9 cm/sec TR max P.4 mmHg Left Ventricle The left ventricle is grossly normal size. There is moderate concentric left ventricular hypertrophy. The left ventricular ejection fraction is normal. LV diastolic function could not be adequately assessed due to atrial fibrilation. There is apical wall akinesis. Right Ventricle The right ventricle is grossly normal size. There is normal right ventricular wall thickness. The right ventricular systolic function is normal. Atria Borderline right atrial enlargement. The left atrium is mildly dilated. Interarterial septum not well visualized and not well dopplered. Cannot comment on ASD/PFO presence. Mitral Valve The mitral valve leaflets are sclerotic, but show no functional abnormalities. There is no mitral valve stenosis. There is a trace amount of mitral regurgitation. Aortic Valve The aortic valve is sclerotic, but shows no functional abnormality. There is no aortic valve stenosis. No aortic regurgitation is present. Tricuspid Valve The tricuspid valve is not well visualized, but is grossly normal. There is no tricuspid stenosis. There is a trace or physiologic amount of tricuspid regurgitation. Tricuspid regurgitation jet envelope not well defined to measure RV systolic pressure accurately. Pulmonic Valve The pulmonic valve is not well visualized. Great Vessels The aortic root is not well visualized. The inferior vena cava appeared normal and decreased < 50% with respiration (RAP 10-15 mmHg). Effusions Minimal pericardial effusion. : HESHAM SCHULTZ > Doe Dacosta
--- NOTE | 2016-11-19 19:38 | PDOC CONSULTATION ---
Consultation Consult Date: 11/19/16 Attending physician:: VERA DEJESUS Consult reason:: Positive troponin I History of Present Illness Admission Date/PCP: 11/19/16 00:36 DAISY CORTEZ Patient complains of: Patient is intubated and sedated History of Present Illness: CHANDRIKA FLORIAN is a 86 year old male with complaint until approximately 12 hours prior to presentation noting left-sided chest pain with deep inspiration which is sharp in nature 3 out of 5 intensity without radiation. he is unable to identify alleviating factors beyond rest he denies recent viral illness, nausea , vomiting, palpitations or diaphoresis. He does admit to some increasing shortness of breath his ED workup was suggestive of congestive heart failure but negative CTA for pulmonary emboli. His CTA was also concerning for a 2.3 cm right sided spiculated mass with a small effusion and a small pericardial effusion. He has a significant history of smoking in the past. Because of his progressive dyspnea associated with some hemoptysis he was brought to the ICU and started on BiPAP; he subsequently was intubated. He also suffers from chronic atrial fibrillation and prior history of colon cancer. Patient subsequently noted to have atrial fibrillation with rapid ventricular response and then also developed positive elevation of troponin I in non-STEMI range. I was therefore consulted for help with management. A 2D echo was obtained which showed overall normal LV EF with small area of apical akinesia. No significant valvular abnormalities were noted. Currently patient is hypotensive needing Jonathan -Synephrine drip. Past Medical History Cardiac Medical History: Reports: Atrial Fibrillation, Congestive Heart Failure , Hyperlipidema, Hypertension Pulmonary Medical History: Reports: None Neurological Medical History: Reports: None Endocrine Medical History: Reports: Hypothyroidism Malignancy Medical History: Reports: Colorectal Cancer Musculoskeltal Medical History: Reports: Gout Past Surgical History Past Surgical History: Reports: Cardiac Catheterization - stent x1 (), Cholecystectomy, Other - Partial colectomy Social History Information Source: Patient Lives with: Family Smoking Status: Former Smoker Frequency of Alcohol Use: None Hx Recreational Drug Use: No Drugs: None - Advance Directive Resuscitation Status: Full Code Family History Family History: CAD, Hypertension, Other - Dementia Parental Family History Reviewed: Yes Children Family History Reviewed: Yes Sibling(s) Family History Reviewed.: Yes Medication/Allergy Home Medications: Allopurinol [Zyloprim 300 mg Tablet] 300 mg PO DAILY 11/19/16 Clopidogrel Bisulfate [Plavix 75 mg Tablet] 75 mg PO DAILY 11/19/16 Clopidogrel Bisulfate [Plavix 75 mg Tablet] 75 mg PO DAILY 11/19/16 Furosemide [Lasix] 40 mg PO DAILY 11/19/16 Levothyroxine Sodium [Synthroid 50 Mcg Tablet] 50 mcg PO DAILY 11/19/16 Metoprolol Succinate [Toprol Xl 50 mg Tab.sr] 150 mg PO DAILY 11/19/16 Allergies/Adverse Reactions: No Known Allergies Allergy (Unverified 11/18/16 21:44) Review of Systems ROS unobtainable: Due to endotracheal tube Physical Exam Vital Signs: Temp Pulse Resp BP Pulse Ox 98.2 F 95 11 L 112/64 100 11/19/16 18:00 11/19/16 18:00 11/19/16 18:15 11/19/16 18:12 11/19/16 18:15 Intake & Output 11/18/16 11/19/16 11/20/16 06:59 06:59 06:59 Intake Total 5 2851 Output Total 845 Balance 5 2005 Weight 75 kg Exam: GENERAL: well-nourished and in no acute distress. Patient is intubated and sedated. Orientation cannot be checked HEAD: Atraumatic, normocephalic. EYES: Pupils equal round and reactive to light, extraocular movements could not be checked, sclera anicteric, conjunctiva are normal. ENT: TMs normal, nares patent, oropharynx clear without exudates. Moist mucous membranes. No oral ulcerations or bleeding gums noted NECK: supple without lymphadenopathy or JVD. Trachea is central. No cervical or axillary lymphadenopathy noted. Carotids are 2+ LUNGS: Breath sounds mostly clear to auscultation patient is noted to have bibasal crackles at the extreme bases CHEST: Palpation of the chest wall shows no significant chest wall tenderness or abnormalities. HEART: [place] [employer], No PSH, 2/6 ELEANOR aortic area, 1/6 martinez systolic murmur mitral area , no rubs or gallops. ABDOMEN: Soft, no significant tenderness appreciated, normoactive bowel sounds. No guarding, no rebound. No rigidity noted . No masses appreciated. EXTREMITIES: Pedal pulses are 1-2+, no calf tenderness noted, 1+ pedal edema noted. No clubbing or cyanosis. NEUROLOGICAL: The patient cannot participate in the neurological exam but no facial asymmetry noted. Extremities slightly hypotonic PSYCH: This cannot be evaluated. Patient cannot participate. SKIN: No significant ecchymosis, rash, or signs of pruritus noted. MUSCULOSKELETAL EXAM: No significant joint swelling noted. Patient cannot participate in musculoskeletal exam Results Laboratory Results: 11/19/16 08:49 11/19/16 14:17 11/19/16 11/19/16 11/19/16 02:02 02:02 08:00 WBC RBC Hgb Hct MCV MCH MCHC RDW Plt Count Seg Neutrophils % Lymphocytes % Monocytes % Eosinophils % Basophils % Absolute Neutrophils Absolute Lymphocytes Absolute Monocytes Absolute Eosinophils Absolute Basophils Carbonic Acid 1.21 HCO3/H2CO3 Ratio 22:1 ABG pH 7.45 ABG pCO2 40.3 ABG pO2 58.4 L ABG HCO3 27.5 H ABG O2 Saturation 91.5 L ABG Base Excess 3.3 FiO2 100% Sodium Potassium Chloride Carbon Dioxide Anion Gap BUN Creatinine Est GFR ( Amer) Est GFR (Non-Af Amer) Glucose Calcium Magnesium 2.0 Triglycerides Cholesterol LDL Cholesterol Direct VLDL Cholesterol HDL Cholesterol TSH 3.14 11/19/16 11/19/16 11/19/16 08:49 08:49 09:40 WBC 13.0 H RBC 4.54 Hgb 13.7 Hct 42.2 MCV 93 MCH 30.2 MCHC 32.4 RDW 15.6 H Plt Count 183 Seg Neutrophils % Not Reportable Lymphocytes % Not Reportable Monocytes % Not Reportable Eosinophils % Not Reportable Basophils % Not Reportable Absolute Neutrophils Not Reportable Absolute Lymphocytes Not Reportable Absolute Monocytes Not Reportable Absolute Eosinophils Not Reportable Absolute Basophils Not Reportable Carbonic Acid 1.44 H HCO3/H2CO3 Ratio 20:1 ABG pH 7.41 ABG pCO2 47.7 H ABG pO2 109.3 H ABG HCO3 29.2 H ABG O2 Saturation 98.0 ABG Base Excess 3.7 FiO2 40% Sodium Potassium Chloride Carbon Dioxide Anion Gap BUN Creatinine Est GFR ( Amer) Est GFR (Non-Af Amer) Glucose Calcium Magnesium Triglycerides 122 Cholesterol 152.16 LDL Cholesterol Direct 96 VLDL Cholesterol 24.0 HDL Cholesterol 33 L TSH 11/19/16 14:17 WBC RBC Hgb Hct MCV MCH MCHC RDW Plt Count Seg Neutrophils % Lymphocytes % Monocytes % Eosinophils % Basophils % Absolute Neutrophils Absolute Lymphocytes Absolute Monocytes Absolute Eosinophils Absolute Basophils Carbonic Acid HCO3/H2CO3 Ratio ABG pH ABG pCO2 ABG pO2 ABG HCO3 ABG O2 Saturation ABG Base Excess FiO2 Sodium 138.9 Potassium 3.3 L D Chloride 101 Carbon Dioxide 29 Anion Gap 9 BUN 29 H Creatinine 0.86 Est GFR ( Amer) > 60 Est GFR (Non-Af Amer) > 60 Glucose 143 H Calcium 8.3 L Magnesium Triglycerides Cholesterol LDL Cholesterol Direct VLDL Cholesterol HDL Cholesterol TSH 11/19/16 11/19/16 11/19/16 02:02 08:49 14:17 Creatine Kinase 109 CK-MB (CK-2) 2.52 2.38 Troponin I 0.020 0.065 11/19/16 14:17 Creatine Kinase CK-MB (CK-2) 2.91 Troponin I 0.404 EKG Comments: Twelve-lead EKG is reviewed. It showed atrial fibrillation with rapid ventricular response and minor nonspecific ST-T wave changes. 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 Subsequent EKG shows persistent atrial fibrillation with some mild worsening of T-wave inversion but still felt to be nonspecific. Impressions: Chest/Abdomen CTA 11/18/16 22:44 IMPRESSION: No evidence for pulmonary embolic disease. Small right pleural effusion is identified with some associated airspace consolidation most consistent with atelectatic changes. 2.3 cm in diameter spiculated mass in the right mid lung field anteriorly which may only represent focal airspace consolidation however the possibility of a mass cannot be excluded. Followup is recommended. Small pericardial effusion. Other findings as noted above Head CT 11/19/16 00:00 IMPRESSION: No acute intracranial abnormality identified. Chronic microvascular ischemic disease changes noted in the supratentorial white matter. KUB X-Ray 11/19/16 09:01 IMPRESSION: NG tube appears to be in proper position. No acute abnormality identified within the abdomen. Diffuse airspace opacity noted the lung bases. Chest X-Ray 11/19/16 11:17 IMPRESSION: 1. Support tubes and lines as above. 2. No pneumothorax post central line insertion. Visualized lungs otherwise appear unchanged. Assessment & Plan - Diagnosis (1) Elevated troponin I level Is this a current diagnosis for this admission?: Yes (2) Non-STEMI (non-ST elevated myocardial infarction) Is this a current diagnosis for this admission?: Yes (3) Pericardial effusion Is this a current diagnosis for this admission?: Yes (4) Atrial fibrillation Qualifiers: Atrial fibrillation type: chronic Qualified Code(s): I48.2 - Chronic atrial fibrillation Is this a current diagnosis for this admission?: Yes (5) Hypotension (arterial) Qualifiers: Hypotension type: other hypotension type Qualified Code(s): I95.89 - Other hypotension Is this a current diagnosis for this admission?: Yes (6) Lung mass Is this a current diagnosis for this admission?: Yes - Notes Notes: Elevated troponin I: This is in the non-STEMI range and is felt related to supply demand mismatch from atrial fibrillation with rapid ventricular response , hypoxemia, hypotension etc. Patient did have chest pain on presentation which was pleuritic, cannot rule out acute coronary syndrome but because of patient other significant comorbid diagnosis and also relatively normal normal overall LVEF, will recommend medical management with statins, beta blockers, ELIZABETH inhibitor, continuation of antiplatelet therapy. Anticoagulation relatively contraindicated in view of hemoptysis. Non-STEMI: Please see plans under elevated troponin I. Pericardial effusion: This is felt to be a small, there is no evidence of tamponade. Atrial fibrillation with rapid ventricular response: At this point would recommend just rate control. May use amiodarone if needed. Use small doses of IV beta-blockers. Chronic anticoagulation not being started in view of hemoptysis. Arterial hypotension: Etiology not clear, could be sepsis related. Continue with vasopressor support. 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 Biopsy has been scheduled. Continue to observe. - Time Time Spent: 50 to 70 Minutes - CODE STATUS was discussed, patient remains full code. Surrogate decision-maker not identified. Multiple medical problems were addressed. More than 50% of the time spent coordinating care, discussing management plans with involved caregivers. Management plans discussed with involved personnels. Medical decision making was of moderate to high complexity , patient's has multiple comorbidities. Medications reviewed and adjusted accordingly: Yes
[2016-11-19 20:13] LABS: ARTERIAL BLOOD BASE EXCESS 3.2 mmol/L; ARTERIAL BLOOD O2 SATURATION 97.1 % (94-98)
[2016-11-19] MEDS: ATORVASTATIN CALCIUM 40 MG TABLET NG SCH (21:44)
[2016-11-20] MEDS: PIPERACILLIN SODIUM/TAZOBACTAM 3.375 GM in NORMAL SALINE 100 ML IV SCH ×5 (00:29→23:55)
[2016-11-20] MEDS: DIGOXIN INJ 0.5 MG/2 ML AMPULE IV SCH (00:29)
[2016-11-20] MEDS: DEXTROSE 5%-WATER 250 ML with PHENYLEPHRINE HCL 40 MG IV PRN ×6 (03:53→22:55)
[2016-11-20 05:55] LABS: ABSOLUTE BASOPHILS # (AUTO) 0.1 10^3/uL (0.0-0.2); ABSOLUTE EOSINOPHILS # (AUTO) 0.1 10^3/uL (0.0-0.6); ABSOLUTE LYMPHOCYTES (AUTO) 1.9 10^3/uL (0.5-4.7); ABSOLUTE MONOCYTES (AUTO) 0.9 10^3/uL (0.1-1.4); ABSOLUTE NEUT (AUTO) 9.6 10^3/uL (1.7-8.2); BASOPHILS % (AUTO) 0.5 % (0-2); EOSINOPHILS % (AUTO) 0.8 % (0-6); HEMATOCRIT 38.8 % (37.9-51.0); HEMOGLOBIN 12.6 g/dL (13.5-17.0); LYMPHOCYTES % (AUTO) 15.3 % (13-45); MEAN CORPUSCULAR HGB CONC 32.6 g/dL (32.0-36.0); MEAN CORPUSCULAR VOLUME 92 fl (80-97); RED BLOOD COUNT 4.21 10^6/uL (4.35-5.55); RED CELL DISTRIBUTION WIDTH 15.7 % (11.5-14.0); SEGMENTED NEUTROPHILS % (AUTO) 76.4 % (42-78); WHITE BLOOD COUNT 12.6 10^3/uL (4.0-10.5)
[2016-11-20] MEDS: METOPROLOL TARTRATE 50 MG TABLET NG SCH ×3 (06:05→22:02)
[2016-11-20 06:07] LABS: ARTERIAL BLOOD BASE EXCESS 2.3 mmol/L; ARTERIAL BLOOD O2 SATURATION 97.3 % (94-98)
[2016-11-20 06:24] LABS: ANION GAP 8 (5-19); BLOOD UREA NITROGEN 22 mg/dL (7-20); CALCIUM 8.1 mg/dL (8.4-10.2); CARBON DIOXIDE 26 mmol/L (22-30); CHLORIDE 105 mmol/L (98-107); CREATINE KINASE 64 U/L (55-170); CREATININE RESULT 0.77 mg/dL (0.52-1.25); GLUCOSE 107 mg/dL (75-110); MAGNESIUM 1.8 mg/dL (1.6-2.3); POTASSIUM 3.4 mmol/L (3.6-5.0); SODIUM 138.9 mmol/L (137-145); TRIGLYCERIDES 149 mg/dL (<150)
[2016-11-20] MEDS: MIDAZOLAM HCL 100 ML IV PRN (06:36)
[2016-11-20] MEDS: PROPOFOL 100 ML IV PRN ×2 (06:36→17:03)
[2016-11-20] MEDS: NORMAL SALINE 1000 ML 1,000 ML IV PRN ×4 (06:37→22:02)
--- NOTE | 2016-11-20 07:05 | RADIOLOGY REPORT (SQ) ---
EXAM DESCRIPTION: CHEST SINGLE VIEW COMPLETED DATE/TIME: 11/20/2016 6:36 am REASON FOR STUDY: resp failure COMPARISON: 11/19/2016. EXAM PARAMETERS: NUMBER OF VIEWS: One view. TECHNIQUE: Single frontal radiographic view of the chest acquired. RADIATION DOSE: NA LIMITATIONS: None. FINDINGS: LUNGS AND PLEURA: Moderate mixed interstitial and airspace opacities and/or layered effusi on of bilateral lower hemithoraces. MEDIASTINUM AND HILAR STRUCTURES: No masses. Contour normal. HEART AND VASCULAR STRUCTURES: Borderline cardiac silhouette size. Atherosclerosis. BONES: No acute findings. HARDWARE: Adequate appearing endotracheal tube. Right internal jugular central line and partially ob scured NG tube appear likely adequate. OTHER: No other significant finding. IMPRESSION: No significant interval change. TECHNICAL DOCUMENTATION: JOB ID: [id number]
[2016-11-20] MEDS ORDERED: POTASSI CL 20 MEQ/50 ML RIDER 50 ML IV ONE (07:14)
[2016-11-20] MEDS: LEVOTHYROXINE SODIUM 0.05 MG TABLET NG SCH (07:42)
[2016-11-20] MEDS ORDERED: DEXTROSE 50%-WATER 25 GM/50 ML DISP.SYRIN IV PRN ×2 (08:04)
[2016-11-20] MEDS ORDERED: GLUCAGON,HUMAN RECOMB 1 MG INJ IM PRN (08:04)
[2016-11-20] MEDS ORDERED: INSULIN LISPRO 100 UNIT/ML 3 ML VIAL SUBCUT PRN (08:04)
[2016-11-20] MEDS ORDERED: DEXTROSE 40% GEL 15 GM TUBE PO PRN ×2 (08:04)
[2016-11-20] MEDS: CLOPIDOGREL BISULFATE 75 MG TABLET NG SCH (09:23)
[2016-11-20] MEDS: ENOXAPARIN SODIUM INJ 40 MG/0.4 ML DISP.SYRIN SUBCUT SCH (10:51)
[2016-11-20] MEDS: DOCUSATE SODIUM 100 MG CAPSULE PO SCH ×2 (10:52→17:03)
--- NOTE | 2016-11-20 11:04 | PDOC PROGRESS REPORT ---
Subjective Progress Note for:: 11/20/16 Subjective:: intubated Physical Exam Vital Signs: Temp Pulse Resp BP Pulse Ox 98.2 F 80 19 146/92 H 100 11/20/16 08:00 11/20/16 08:00 11/20/16 08:00 11/20/16 08:00 11/20/16 08:00 Intake & Output 11/19/16 11/20/16 11/21/16 06:59 06:59 06:59 Intake Total 5 5325 Output Total 2014 150 Balance 5 3310 -150 Weight 75 kg 72.1 kg General appearance: PRESENT: no acute distress, disheveled, thin, well-developed Head exam: PRESENT: atraumatic, normocephalic Eye exam: PRESENT: conjunctiva pale Mouth exam: PRESENT: dry mucosa, neck supple, tongue midline, other - ET tube Neck exam: ABSENT: carotid bruit, JVD, lymphadenopathy, thyromegaly Respiratory exam: PRESENT: decreased breath sounds, prolonged expiratory phas, symmetrical, unlabored Cardiovascular exam: PRESENT: RRR, +S1, +S2 Pulses: PRESENT: normal radial pulses GI/Abdominal exam: PRESENT: normal bowel sounds, soft. ABSENT: distended, guarding, mass, organolmegaly, rebound, tenderness Rectal exam: PRESENT: deferred Gentrourinary exam: PRESENT: indwelling catheter Musculoskeletal exam: PRESENT: normal inspection Neurological exam: PRESENT: alert, awake Skin exam: PRESENT: dry, warm Results Laboratory Results: 11/20/16 05:35 11/20/16 05:35 11/19/16 11/19/16 11/19/16 08:49 08:49 09:40 WBC 13.0 H RBC 4.54 Hgb 13.7 Hct 42.2 MCV 93 MCH 30.2 MCHC 32.4 RDW 15.6 H Plt Count 183 Seg Neutrophils % Not Reportable Lymphocytes % Not Reportable Monocytes % Not Reportable Eosinophils % Not Reportable Basophils % Not Reportable Absolute Neutrophils Not Reportable Absolute Lymphocytes Not Reportable Absolute Monocytes Not Reportable Absolute Eosinophils Not Reportable Absolute Basophils Not Reportable Carbonic Acid 1.44 H HCO3/H2CO3 Ratio 20:1 ABG pH 7.41 ABG pCO2 47.7 H ABG pO2 109.3 H ABG HCO3 29.2 H ABG O2 Saturation 98.0 ABG Base Excess 3.7 FiO2 40% Sodium Potassium Chloride Carbon Dioxide Anion Gap BUN Creatinine Est GFR ( Amer) Est GFR (Non-Af Amer) Glucose Calcium Magnesium Triglycerides 122 Cholesterol 152.16 LDL Cholesterol Direct 96 VLDL Cholesterol 24.0 HDL Cholesterol 33 L 11/19/16 11/19/16 11/20/16 14:17 20:07 05:35 WBC RBC Hgb Hct MCV MCH MCHC RDW Plt Count Seg Neutrophils % Lymphocytes % Monocytes % Eosinophils % Basophils % Absolute Neutrophils Absolute Lymphocytes Absolute Monocytes Absolute Eosinophils Absolute Basophils Carbonic Acid 1.43 H 1.35 HCO3/H2CO3 Ratio 20:1 20:1 ABG pH 7.40 7.40 ABG pCO2 47.4 H 45.0 ABG pO2 93.1 96.2 ABG HCO3 28.8 H 27.5 H ABG O2 Saturation 97.1 97.3 ABG Base Excess 3.2 2.3 FiO2 35% 30% Sodium 138.9 Potassium 3.3 L D Chloride 101 Carbon Dioxide 29 Anion Gap 9 BUN 29 H Creatinine 0.86 Est GFR ( Amer) > 60 Est GFR (Non-Af Amer) > 60 Glucose 143 H Calcium 8.3 L Magnesium Triglycerides Cholesterol LDL Cholesterol Direct VLDL Cholesterol HDL Cholesterol 11/20/16 11/20/16 05:35 05:35 WBC 12.6 H RBC 4.21 L Hgb 12.6 L Hct 38.8 MCV 92 MCH 30.0 MCHC 32.6 RDW 15.7 H Plt Count 159 Seg Neutrophils % 76.4 Lymphocytes % 15.3 Monocytes % 7.0 Eosinophils % 0.8 Basophils % 0.5 Absolute Neutrophils 9.6 H Absolute Lymphocytes 1.9 Absolute Monocytes 0.9 Absolute Eosinophils 0.1 Absolute Basophils 0.1 Carbonic Acid HCO3/H2CO3 Ratio ABG pH ABG pCO2 ABG pO2 ABG HCO3 ABG O2 Saturation ABG Base Excess FiO2 Sodium 138.9 Potassium 3.4 L Chloride 105 Carbon Dioxide 26 Anion Gap 8 BUN 22 H Creatinine 0.77 Est GFR ( Amer) > 60 Est GFR (Non-Af Amer) > 60 Glucose 107 Calcium 8.1 L Magnesium 1.8 Triglycerides 149 Cholesterol LDL Cholesterol Direct VLDL Cholesterol HDL Cholesterol 11/19/16 11/19/16 11/19/16 02:02 08:49 14:17 Creatine Kinase 109 CK-MB (CK-2) 2.52 2.38 Troponin I 0.020 0.065 11/19/16 11/20/16 14:17 05:35 Creatine Kinase 64 CK-MB (CK-2) 2.91 Troponin I 0.404 Impressions: Chest/Abdomen CTA 11/18/16 22:44 IMPRESSION: No evidence for pulmonary embolic disease. Small right pleural effusion is identified with some associated airspace consolidation most consistent with atelectatic changes. 2.3 cm in diameter spiculated mass in the right mid lung field anteriorly which may only represent focal airspace consolidation however the possibility of a mass cannot be excluded. Followup is recommended. Small pericardial effusion. Other findings as noted above Head CT 11/19/16 00:00 IMPRESSION: No acute intracranial abnormality identified. Chronic microvascular ischemic disease changes noted in the supratentorial white matter. KUB X-Ray 11/19/16 09:01 IMPRESSION: NG tube appears to be in proper position. No acute abnormality identified within the abdomen. Diffuse airspace opacity noted the lung bases. Chest X-Ray 11/20/16 06:00 IMPRESSION: No significant interval change. Assessment & Plan - Diagnosis (1) Atrial fibrillation Qualifiers: Atrial fibrillation type: chronic Qualified Code(s): I48.2 - Chronic atrial fibrillation Is this a current diagnosis for this admission?: Yes (2) Chest pain, rule out acute myocardial infarction Is this a current diagnosis for this admission?: Yes (3) Congestive heart failure Is this a current diagnosis for this admission?: Yes (4) Lung mass Is this a current diagnosis for this admission?: YesPlan: ok with cardiology to hold plavix prelude to biopsy - Time Critical Time spent with patient: 35 or more minutes
--- NOTE | 2016-11-20 11:13 | PDOC PROGRESS REPORT ---
Subjective Progress Note for:: 11/20/16 Subjective:: intubated and sedated. Physical Exam Vital Signs: Temp Pulse Resp BP Pulse Ox 98.2 F 80 19 138/57 H 100 11/20/16 08:00 11/20/16 08:00 11/20/16 11:00 11/20/16 10:58 11/20/16 11:00 Intake & Output 11/19/16 11/20/16 11/21/16 06:59 06:59 06:59 Intake Total 5 5325 Output Total 2014 150 Balance 5 3310 -150 Weight 75 kg 72.1 kg General appearance: PRESENT: no acute distress Eye exam: PRESENT: conjunctiva pink. ABSENT: scleral icterus Ear exam: PRESENT: normal external ear exam Mouth exam: PRESENT: moist, tongue midline Neck exam: ABSENT: JVD Respiratory exam: PRESENT: clear to auscultation jonathon. ABSENT: rales, rhonchi, wheezes Cardiovascular exam: PRESENT: RRR. ABSENT: diastolic murmur, rubs, systolic murmur GI/Abdominal exam: PRESENT: normal bowel sounds, soft. ABSENT: distended, guarding, mass, organolmegaly, rebound, tenderness Extremities exam: PRESENT: full ROM. ABSENT: calf tenderness, clubbing, pedal edema Neurological exam: PRESENT: other - Patient intubated Psychiatric exam: PRESENT: other - Intubated Skin exam: PRESENT: dry, intact, warm. ABSENT: cyanosis, rash Results Laboratory Results: 11/20/16 05:35 11/20/16 05:35 11/19/16 11/19/16 11/20/16 14:17 20:07 05:35 WBC RBC Hgb Hct MCV MCH MCHC RDW Plt Count Seg Neutrophils % Lymphocytes % Monocytes % Eosinophils % Basophils % Absolute Neutrophils Absolute Lymphocytes Absolute Monocytes Absolute Eosinophils Absolute Basophils Carbonic Acid 1.43 H 1.35 HCO3/H2CO3 Ratio 20:1 20:1 ABG pH 7.40 7.40 ABG pCO2 47.4 H 45.0 ABG pO2 93.1 96.2 ABG HCO3 28.8 H 27.5 H ABG O2 Saturation 97.1 97.3 ABG Base Excess 3.2 2.3 FiO2 35% 30% Sodium 138.9 Potassium 3.3 L D Chloride 101 Carbon Dioxide 29 Anion Gap 9 BUN 29 H Creatinine 0.86 Est GFR ( Amer) > 60 Est GFR (Non-Af Amer) > 60 Glucose 143 H Calcium 8.3 L Magnesium Triglycerides 11/20/16 11/20/16 05:35 05:35 WBC 12.6 H RBC 4.21 L Hgb 12.6 L Hct 38.8 MCV 92 MCH 30.0 MCHC 32.6 RDW 15.7 H Plt Count 159 Seg Neutrophils % 76.4 Lymphocytes % 15.3 Monocytes % 7.0 Eosinophils % 0.8 Basophils % 0.5 Absolute Neutrophils 9.6 H Absolute Lymphocytes 1.9 Absolute Monocytes 0.9 Absolute Eosinophils 0.1 Absolute Basophils 0.1 Carbonic Acid HCO3/H2CO3 Ratio ABG pH ABG pCO2 ABG pO2 ABG HCO3 ABG O2 Saturation ABG Base Excess FiO2 Sodium 138.9 Potassium 3.4 L Chloride 105 Carbon Dioxide 26 Anion Gap 8 BUN 22 H Creatinine 0.77 Est GFR ( Amer) > 60 Est GFR (Non-Af Amer) > 60 Glucose 107 Calcium 8.1 L Magnesium 1.8 Triglycerides 149 11/19/16 11/19/16 11/19/16 02:02 08:49 14:17 Creatine Kinase 109 CK-MB (CK-2) 2.52 2.38 Troponin I 0.020 0.065 11/19/16 11/20/16 14:17 05:35 Creatine Kinase 64 CK-MB (CK-2) 2.91 Troponin I 0.404 Impressions: Chest/Abdomen CTA 11/18/16 22:44 IMPRESSION: No evidence for pulmonary embolic disease. Small right pleural effusion is identified with some associated airspace consolidation most consistent with atelectatic changes. 2.3 cm in diameter spiculated mass in the right mid lung field anteriorly which may only represent focal airspace consolidation however the possibility of a mass cannot be excluded. Followup is recommended. Small pericardial effusion. Other findings as noted above Head CT 11/19/16 00:00 IMPRESSION: No acute intracranial abnormality identified. Chronic microvascular ischemic disease changes noted in the supratentorial white matter. KUB X-Ray 11/19/16 09:01 IMPRESSION: NG tube appears to be in proper position. No acute abnormality identified within the abdomen. Diffuse airspace opacity noted the lung bases. Chest X-Ray 11/20/16 06:00 IMPRESSION: No significant interval change. Assessment & Plan - Diagnosis (1) Chest pain Is this a current diagnosis for this admission?: YesPlan: Patient has had some elevation in his troponins. Cardiology has been consulted (2) Atrial fibrillation Qualifiers: Atrial fibrillation type: chronic Qualified Code(s): I48.2 - Chronic atrial fibrillation Is this a current diagnosis for this admission?: YesPlan: Slightly elevated but will monitor for now. (3) Congestive heart failure Is this a current diagnosis for this admission?: YesPlan: Cardiology has been consulted (4) Lung mass Is this a current diagnosis for this admission?: YesPlan: Pulmonary medicine has been consulted for consideration of a bronchoscopy. - Time Time Spent with patient: 25-34 minutes - Inpatient Certification Medical Necessity: Need Close Monitoring Due to Risk of Patient Decompensation
--- NOTE | 2016-11-20 11:54 | PDOC PROGRESS REPORT ---
Subjective Progress Note for:: 11/20/16 Subjective:: Patient about the same and has made very little progress. There is no significant change in general condition. Patient continues to need Jonathan- Synephrine drip for blood pressure but at the lower dose. Patient remains intubated, sedated, patient however looks comfortable and in acute distress. Medications reviewed. Physical Exam Vital Signs: Temp Pulse Resp BP Pulse Ox 98.2 F 80 19 138/57 H 100 11/20/16 08:00 11/20/16 08:00 11/20/16 11:00 11/20/16 10:58 11/20/16 11:00 Intake & Output 11/19/16 11/20/16 11/21/16 06:59 06:59 06:59 Intake Total 5325 Output Total 2014 150 Balance 5 3310 -150 Weight 75 kg 72.1 kg Exam: GENERAL: well-nourished and in no acute distress. Patient is intubated and sedated. Orientation cannot be checked HEAD: Atraumatic, normocephalic. EYES: Pupils equal round and reactive to light, extraocular movements could not be checked, sclera anicteric, conjunctiva are normal. ENT: TMs normal, nares patent, oropharynx clear without exudates. Moist mucous membranes. No oral ulcerations or bleeding gums noted NECK: supple without lymphadenopathy or JVD. Trachea is central. No cervical or axillary lymphadenopathy noted. Carotids are 2+ LUNGS: Breath sounds mostly clear to auscultation patient is noted to have bibasal crackles at the extreme bases CHEST: Palpation of the chest wall shows no significant chest wall tenderness or abnormalities. 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 ABDOMEN: Soft, no significant tenderness appreciated, normoactive bowel sounds. No guarding, no rebound. No rigidity noted . No masses appreciated. EXTREMITIES: Pedal pulses are 1-2+, no calf tenderness noted, 1+ pedal edema noted. No clubbing or cyanosis. NEUROLOGICAL: The patient cannot participate in the neurological exam but no facial asymmetry noted. Extremities slightly hypotonic PSYCH: This cannot be evaluated. Patient cannot participate. SKIN: No significant ecchymosis, rash, or signs of pruritus noted. MUSCULOSKELETAL EXAM: No significant joint swelling noted. Patient cannot participate in musculoskeletal exam Results Laboratory Results: 11/20/16 05:35 11/20/16 05:35 11/19/16 11/19/16 11/20/16 14:17 20:07 05:35 WBC RBC Hgb Hct MCV MCH MCHC RDW Plt Count Seg Neutrophils % Lymphocytes % Monocytes % Eosinophils % Basophils % Absolute Neutrophils Absolute Lymphocytes Absolute Monocytes Absolute Eosinophils Absolute Basophils Carbonic Acid 1.43 H 1.35 HCO3/H2CO3 Ratio 20:1 20:1 ABG pH 7.40 7.40 ABG pCO2 47.4 H 45.0 ABG pO2 93.1 96.2 ABG HCO3 28.8 H 27.5 H ABG O2 Saturation 97.1 97.3 ABG Base Excess 3.2 2.3 FiO2 35% 30% Sodium 138.9 Potassium 3.3 L D Chloride 101 Carbon Dioxide 29 Anion Gap 9 BUN 29 H Creatinine 0.86 Est GFR ( Amer) > 60 Est GFR (Non-Af Amer) > 60 Glucose 143 H Calcium 8.3 L Magnesium Triglycerides 11/20/16 11/20/16 05:35 05:35 WBC 12.6 H RBC 4.21 L Hgb 12.6 L Hct 38.8 MCV 92 MCH 30.0 MCHC 32.6 RDW 15.7 H Plt Count 159 Seg Neutrophils % 76.4 Lymphocytes % 15.3 Monocytes % 7.0 Eosinophils % 0.8 Basophils % 0.5 Absolute Neutrophils 9.6 H Absolute Lymphocytes 1.9 Absolute Monocytes 0.9 Absolute Eosinophils 0.1 Absolute Basophils 0.1 Carbonic Acid HCO3/H2CO3 Ratio ABG pH ABG pCO2 ABG pO2 ABG HCO3 ABG O2 Saturation ABG Base Excess FiO2 Sodium 138.9 Potassium 3.4 L Chloride 105 Carbon Dioxide 26 Anion Gap 8 BUN 22 H Creatinine 0.77 Est GFR ( Amer) > 60 Est GFR (Non-Af Amer) > 60 Glucose 107 Calcium 8.1 L Magnesium 1.8 Triglycerides 149 11/19/16 11/19/16 11/19/16 02:02 08:49 14:17 Creatine Kinase 109 CK-MB (CK-2) 2.52 2.38 Troponin I 0.020 0.065 11/19/16 11/20/16 14:17 05:35 Creatine Kinase 64 CK-MB (CK-2) 2.91 Troponin I 0.404 EKG Comments: Twelve-lead EKG from yesterday reviewed. Showed atrial fibrillation, right bundle branch block pattern with secondary ST-T wave changes. Impressions: Chest/Abdomen CTA 11/18/16 22:44 IMPRESSION: No evidence for pulmonary embolic disease. Small right pleural effusion is identified with some associated airspace consolidation most consistent with atelectatic changes. 2.3 cm in diameter spiculated mass in the right mid lung field anteriorly which may only represent focal airspace consolidation however the possibility of a mass cannot be excluded. Followup is recommended. Small pericardial effusion. Other findings as noted above Head CT 11/19/16 00:00 IMPRESSION: No acute intracranial abnormality identified. Chronic microvascular ischemic disease changes noted in the supratentorial white matter. KUB X-Ray 11/19/16 09:01 IMPRESSION: NG tube appears to be in proper position. No acute abnormality identified within the abdomen. Diffuse airspace opacity noted the lung bases. Chest X-Ray 11/20/16 06:00 IMPRESSION: No significant interval change. Assessment & Plan - Diagnosis (1) Elevated troponin I level Is this a current diagnosis for this admission?: Yes (2) Non-STEMI (non-ST elevated myocardial infarction) Is this a current diagnosis for this admission?: Yes (3) Pericardial effusion Is this a current diagnosis for this admission?: Yes (4) Atrial fibrillation Qualifiers: Atrial fibrillation type: chronic Qualified Code(s): I48.2 - Chronic atrial fibrillation Is this a current diagnosis for this admission?: Yes (5) Hypotension (arterial) Qualifiers: Hypotension type: other hypotension type Qualified Code(s): I95.89 - Other hypotension Is this a current diagnosis for this admission?: Yes (6) Lung mass Is this a current diagnosis for this admission?: Yes - Notes Notes: No significant changes in patient's condition. Elevated troponin I: This is in the non-STEMI range and is felt related to supply demand mismatch from atrial fibrillation with rapid ventricular response , hypoxemia, hypotension etc. Patient did have chest pain on presentation which was pleuritic, cannot rule out acute coronary syndrome but because of patient other significant comorbid diagnosis and also relatively normal normal overall LVEF, will recommend medical management with statins, beta blockers, ELIZABETH inhibitor, continuation of antiplatelet therapy. Anticoagulation relatively contraindicated in view of hemoptysis. Currently on beta-nhung. Non-STEMI: Please see plans under elevated troponin I. Pericardial effusion: This is felt to be a small, there is no evidence of tamponade. Atrial fibrillation with rapid ventricular response: At this point would recommend just rate control. May use amiodarone if needed. Use additional small doses of IV beta-blockers, if needed. Chronic anticoagulation not being started in view of hemoptysis. Arterial hypotension: Etiology not clear, could be sepsis related. Continue with vasopressor support. 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 Biopsy to be scheduled at a later date. Patient stent placement with several years ago therefore no need for dual antiplatelet therapy and Plavix could be held for biopsy procedure if needed. Continue to observe. - Time Time with patient: Greater than 35 minutes - CODE STATUS was discussed, patient remains full code. Surrogate decision-maker unchanged. Multiple medical problems were addressed. More than 50% of the time spent coordinating care, discussing management plans with involved caregivers. Management plans discussed with involved personnels. Medical decision making was of moderate to high complexity, patient's has multiple comorbidities.
[2016-11-20] MEDS: ATORVASTATIN CALCIUM 40 MG TABLET NG SCH (22:00)
[2016-11-21] MEDS: PROPOFOL 100 ML IV PRN ×2 (01:26→16:02)
[2016-11-21 04:29] LABS: ARTERIAL BLOOD BASE EXCESS -1.2 mmol/L; ARTERIAL BLOOD O2 SATURATION 97.5 % (94-98)
[2016-11-21 04:33] LABS: ABSOLUTE BASOPHILS # (AUTO) 0.1 10^3/uL (0.0-0.2); ABSOLUTE EOSINOPHILS # (AUTO) 0.3 10^3/uL (0.0-0.6); ABSOLUTE LYMPHOCYTES (AUTO) 2.1 10^3/uL (0.5-4.7); ABSOLUTE MONOCYTES (AUTO) 0.8 10^3/uL (0.1-1.4); ABSOLUTE NEUT (AUTO) 6.3 10^3/uL (1.7-8.2); BASOPHILS % (AUTO) 0.5 % (0-2); EOSINOPHILS % (AUTO) 3.3 % (0-6); HEMOGLOBIN 11.4 g/dL (13.5-17.0); HGB HCT DIFFERENCE -0.8; LYMPHOCYTES % (AUTO) 22.1 % (13-45); MEAN CORPUSCULAR HEMOGLOBIN 30.1 pg (27.0-33.4); MEAN CORPUSCULAR HGB CONC 32.6 g/dL (32.0-36.0); MEAN CORPUSCULAR VOLUME 92 fl (80-97); MONOCYTES % (AUTO) 8.4 % (3-13); RED BLOOD COUNT 3.79 10^6/uL (4.35-5.55); RED CELL DISTRIBUTION WIDTH 15.4 % (11.5-14.0); SEGMENTED NEUTROPHILS % (AUTO) 65.7 % (42-78); WHITE BLOOD COUNT 9.6 10^3/uL (4.0-10.5)
[2016-11-21 04:38] LABS: PARTIAL THROMBOPLASTIN TIME 42.5 SEC (23.5-35.8)
[2016-11-21 04:44] LABS: ALANINE AMINOTRANSFERASE 17 U/L (21-72); ALKALINE PHOSPHATASE 60 U/L (38-126); ANION GAP 5 (5-19); ASPARTATE AMINO TRANSFERASE 15 U/L (17-59); BILIRUBIN,DIRECT 0.3 mg/dL (0.0-0.4); BILIRUBIN,TOTAL 0.8 mg/dL (0.2-1.3); BLOOD UREA NITROGEN 17 mg/dL (7-20); CARBON DIOXIDE 26 mmol/L (22-30); CHLORIDE 109 mmol/L (98-107); CREATININE RESULT 0.68 mg/dL (0.52-1.25); GLUCOSE 89 mg/dL (75-110); MAGNESIUM 1.7 mg/dL (1.6-2.3); POTASSIUM 3.4 mmol/L (3.6-5.0); SODIUM 139.7 mmol/L (137-145); TOTAL PROTEIN 4.2 g/dL (6.3-8.2)
[2016-11-21 04:51] LABS: PREALBUMIN 9.5 mg/dL (17.6-36.0)
[2016-11-21] MEDS: METOPROLOL TARTRATE 50 MG TABLET NG SCH ×3 (05:11→21:36)
[2016-11-21] MEDS: PIPERACILLIN SODIUM/TAZOBACTAM 3.375 GM in NORMAL SALINE 100 ML IV SCH ×3 (05:33→17:57)
[2016-11-21] MEDS: NORMAL SALINE 1000 ML 1,000 ML IV PRN ×3 (05:33→21:26)
[2016-11-21] MEDS: MIDAZOLAM HCL 100 ML IV PRN (06:17)
[2016-11-21] MEDS: LEVOTHYROXINE SODIUM 0.05 MG TABLET NG SCH (07:37)
--- NOTE | 2016-11-21 07:42 | RADIOLOGY REPORT (SQ) ---
EXAM DESCRIPTION: CHEST SINGLE VIEW COMPLETED DATE/TIME: 11/21/2016 7:20 am REASON FOR STUDY: resp failure COMPARISON: 11/20/2016 EXAM PARAMETERS: NUMBER OF VIEWS: One view. TECHNIQUE: Single frontal radiographic view of the chest acquired. RADIATION DOSE: NA LIMITATIONS: None. FINDINGS: LUNGS AND PLEURA: Moderate lung volumes, left smaller. Small-moderate layered effusion -o pacities of bilateral lower hemithoraces. MEDIASTINUM AND HILAR STRUCTURES: Normal cardiac silhouette size. Atherosclerosis. HEART AND VASCULAR STRUCTURES: Heart normal in size. Normal vasculature. BONES: Adequate appearing endotracheal tube, right internal jugular line, and partially obscured NG t ube. HARDWARE: None in the chest. OTHER: No other significant finding. IMPRESSION: No significant interval change. TECHNICAL DOCUMENTATION: JOB ID: [id number]
[2016-11-21] MEDS: ENOXAPARIN SODIUM INJ 40 MG/0.4 ML DISP.SYRIN SUBCUT SCH (09:11)
[2016-11-21] MEDS: DOCUSATE SODIUM 100 MG CAPSULE PO SCH ×2 (09:11→17:57)
[2016-11-21] MEDS: FAMOTIDINE INJ/PF 20 MG/2 ML SDV IV SCH ×2 (10:10→21:35)
[2016-11-21] MEDS: DEXTROSE 5%-WATER 250 ML with PHENYLEPHRINE HCL 40 MG IV PRN ×4 (10:11→23:35)
[2016-11-21 11:48] LABS: CREATINE KINASE MB 2.48 ng/mL (<4.55); TROPONIN I 0.084 ng/mL
[2016-11-21] MEDS ORDERED: ASPIRIN 325 MG TABLET PO ONE (12:30)
[2016-11-21] MEDS ORDERED: CLOPIDOGREL BISULFATE 75 MG TABLET PO ONE (12:30)
--- NOTE | 2016-11-21 12:31 | PDOC PROGRESS REPORT ---
Subjective Progress Note for:: 11/21/16 Subjective:: intubated Physical Exam Vital Signs: Temp Pulse Resp BP Pulse Ox 97.2 F 88 19 145/75 H 100 11/21/16 08:00 11/21/16 08:22 11/21/16 08:00 11/21/16 08:00 11/21/16 08:00 Intake & Output 11/20/16 11/21/16 11/22/16 06:59 06:59 06:59 Intake Total 5325 4374 Output Total 2014 1435 100 Balance 3310 2939 -100 Weight 72.1 kg 75.5 kg General appearance: PRESENT: no acute distress, disheveled, thin, well-developed Head exam: PRESENT: atraumatic, normocephalic Eye exam: PRESENT: conjunctiva pale Mouth exam: PRESENT: dry mucosa, neck supple, tongue midline, other - ET tube Teeth exam: PRESENT: poor dentation Neck exam: ABSENT: carotid bruit, JVD, lymphadenopathy, thyromegaly Respiratory exam: PRESENT: decreased breath sounds, prolonged expiratory phas, rales, rhonchi, symmetrical, unlabored Cardiovascular exam: PRESENT: irregular rhythm Pulses: PRESENT: normal radial pulses GI/Abdominal exam: PRESENT: normal bowel sounds, soft. ABSENT: distended, guarding, mass, organolmegaly, rebound, tenderness Rectal exam: PRESENT: deferred Gentrourinary exam: PRESENT: indwelling catheter Skin exam: PRESENT: dry, warm Results Laboratory Results: 11/21/16 04:15 11/21/16 04:15 11/21/16 11/21/16 11/21/16 04:15 04:15 04:15 WBC 9.6 RBC 3.79 L Hgb 11.4 L Hct 35.0 L MCV 92 MCH 30.1 MCHC 32.6 RDW 15.4 H Plt Count 137 L Seg Neutrophils % 65.7 Lymphocytes % 22.1 Monocytes % 8.4 Eosinophils % 3.3 Basophils % 0.5 Absolute Neutrophils 6.3 Absolute Lymphocytes 2.1 Absolute Monocytes 0.8 Absolute Eosinophils 0.3 Absolute Basophils 0.1 Carbonic Acid 1.16 HCO3/H2CO3 Ratio 20:1 ABG pH 7.40 ABG pCO2 38.4 ABG pO2 97.8 ABG HCO3 23.4 ABG O2 Saturation 97.5 ABG Base Excess -1.2 FiO2 30% Sodium 139.7 Potassium 3.4 L Chloride 109 H Carbon Dioxide 26 Anion Gap 5 BUN 17 Creatinine 0.68 Est GFR ( Amer) > 60 Est GFR (Non-Af Amer) > 60 Glucose 89 Calcium 8.0 L Magnesium 1.7 Total Bilirubin 0.8 AST 15 L ALT 17 L Alkaline Phosphatase 60 Total Protein 4.2 L Albumin 2.0 L Prealbumin 9.5 L 11/19/16 09:30 Tracheal Aspirate Gram Stain - Final 11/19/16 09:30 Tracheal Aspirate Sputum Culture - Final REDUCED NORMAL LOLITA 11/19/16 11/19/16 11/19/16 02:02 08:49 14:17 Creatine Kinase 109 CK-MB (CK-2) 2.52 2.38 Troponin I 0.020 0.065 11/19/16 11/20/16 14:17 05:35 Creatine Kinase 64 CK-MB (CK-2) 2.91 Troponin I 0.404 Impressions: Chest/Abdomen CTA 11/18/16 22:44 IMPRESSION: No evidence for pulmonary embolic disease. Small right pleural effusion is identified with some associated airspace consolidation most consistent with atelectatic changes. 2.3 cm in diameter spiculated mass in the right mid lung field anteriorly which may only represent focal airspace consolidation however the possibility of a mass cannot be excluded. Followup is recommended. Small pericardial effusion. Other findings as noted above Head CT 11/19/16 00:00 IMPRESSION: No acute intracranial abnormality identified. Chronic microvascular ischemic disease changes noted in the supratentorial white matter. KUB X-Ray 11/19/16 09:01 IMPRESSION: NG tube appears to be in proper position. No acute abnormality identified within the abdomen. Diffuse airspace opacity noted the lung bases. Chest X-Ray 11/21/16 06:00 IMPRESSION: No significant interval change. Assessment & Plan - Diagnosis (1) Atrial fibrillation Qualifiers: Atrial fibrillation type: chronic Qualified Code(s): I48.2 - Chronic atrial fibrillation Is this a current diagnosis for this admission?: Yes (2) Chest pain, rule out acute myocardial infarction Is this a current diagnosis for this admission?: Yes (3) Congestive heart failure Is this a current diagnosis for this admission?: Yes (4) Lung mass Is this a current diagnosis for this admission?: Yes - Time Critical Time spent with patient: 35 or more minutes
--- NOTE | 2016-11-21 12:35 | PDOC PROGRESS REPORT ---
Subjective Progress Note for:: 11/21/16 Subjective:: intubated and sedated. Physical Exam Vital Signs: Temp Pulse Resp BP Pulse Ox 97.2 F 84 12 127/70 H 97 11/21/16 08:00 11/21/16 10:00 11/21/16 10:25 11/21/16 10:25 11/21/16 11:25 Intake & Output 11/20/16 11/21/16 11/22/16 06:59 06:59 06:59 Intake Total 6400 4374 30 Output Total 4594 3524 425 Balance 3310 2939 -088 Weight 72.1 kg 75.5 kg General appearance: PRESENT: no acute distress Eye exam: PRESENT: conjunctiva pink. ABSENT: scleral icterus Mouth exam: PRESENT: moist, tongue midline Neck exam: ABSENT: JVD Respiratory exam: PRESENT: clear to auscultation jonathon. ABSENT: rales, rhonchi, wheezes Cardiovascular exam: PRESENT: RRR. ABSENT: diastolic murmur, rubs, systolic murmur GI/Abdominal exam: PRESENT: normal bowel sounds, soft. ABSENT: distended, guarding, mass, organolmegaly, rebound, tenderness Extremities exam: ABSENT: calf tenderness, clubbing, pedal edema Neurological exam: PRESENT: other - intubated Psychiatric exam: PRESENT: other - unable to assess Skin exam: PRESENT: dry, intact, warm. ABSENT: cyanosis, rash Results Laboratory Results: 11/21/16 04:15 11/21/16 04:15 11/21/16 11/21/16 11/21/16 04:15 04:15 04:15 WBC 9.6 RBC 3.79 L Hgb 11.4 L Hct 35.0 L MCV 92 MCH 30.1 MCHC 32.6 RDW 15.4 H Plt Count 137 L Seg Neutrophils % 65.7 Lymphocytes % 22.1 Monocytes % 8.4 Eosinophils % 3.3 Basophils % 0.5 Absolute Neutrophils 6.3 Absolute Lymphocytes 2.1 Absolute Monocytes 0.8 Absolute Eosinophils 0.3 Absolute Basophils 0.1 Carbonic Acid 1.16 HCO3/H2CO3 Ratio 20:1 ABG pH 7.40 ABG pCO2 38.4 ABG pO2 97.8 ABG HCO3 23.4 ABG O2 Saturation 97.5 ABG Base Excess -1.2 FiO2 30% Sodium 139.7 Potassium 3.4 L Chloride 109 H Carbon Dioxide 26 Anion Gap 5 BUN 17 Creatinine 0.68 Est GFR ( Amer) > 60 Est GFR (Non-Af Amer) > 60 Glucose 89 Calcium 8.0 L Magnesium 1.7 Total Bilirubin 0.8 AST 15 L ALT 17 L Alkaline Phosphatase 60 Total Protein 4.2 L Albumin 2.0 L Prealbumin 9.5 L 11/19/16 09:30 Tracheal Aspirate Gram Stain - Final 11/19/16 09:30 Tracheal Aspirate Sputum Culture - Final REDUCED NORMAL LOLITA 11/19/16 11/19/16 11/19/16 02:02 08:49 14:17 Creatine Kinase 109 CK-MB (CK-2) 2.52 2.38 Troponin I 0.020 0.065 11/19/16 11/20/16 11/21/16 14:17 05:35 11:05 Creatine Kinase 64 24 L CK-MB (CK-2) 2.91 Troponin I 0.404 11/21/16 11:05 Creatine Kinase CK-MB (CK-2) 2.48 Troponin I 0.084 Impressions: Chest/Abdomen CTA 11/18/16 22:44 IMPRESSION: No evidence for pulmonary embolic disease. Small right pleural effusion is identified with some associated airspace consolidation most consistent with atelectatic changes. 2.3 cm in diameter spiculated mass in the right mid lung field anteriorly which may only represent focal airspace consolidation however the possibility of a mass cannot be excluded. Followup is recommended. Small pericardial effusion. Other findings as noted above Head CT 11/19/16 00:00 IMPRESSION: No acute intracranial abnormality identified. Chronic microvascular ischemic disease changes noted in the supratentorial white matter. KUB X-Ray 11/19/16 09:01 IMPRESSION: NG tube appears to be in proper position. No acute abnormality identified within the abdomen. Diffuse airspace opacity noted the lung bases. Chest X-Ray 11/21/16 06:00 IMPRESSION: No significant interval change. Assessment & Plan - Diagnosis (1) Chest pain Is this a current diagnosis for this admission?: YesPlan: Patient has had some elevation in his troponins. The patient has been evaluated by cardiology. Suggesting possible transfer to a tertiary care center given that he has problems. I discussed this with the daughter and she is agreeable for no further intervention regarding the cardiac issues at this time. We will restart the aspirin Plavix and hold off on the bronchoscopy for now. If his cardiac issues worsen we would consider transfer but will wait for now. (2) Atrial fibrillation Qualifiers: Qualified Code(s): I48.2 - Chronic atrial fibrillation Is this a current diagnosis for this admission?: YesPlan: Stable (3) Congestive heart failure Is this a current diagnosis for this admission?: YesPlan: Cardiology is following (4) Lung mass Is this a current diagnosis for this admission?: YesPlan: Pulmonary medicine has been consulted for consideration of a bronchoscopy. We will hold on the bronchoscopy given the acute cardiac issues and restart aspirin and Plavix. We will try to wean the patient off the ventilator and once he wakes up will allow him to make a decision whether or not to pursue any further workup - Time Time Spent with patient: 25-34 minutes - Inpatient Certification Medical Necessity: Need Close Monitoring Due to Risk of Patient Decompensation
--- NOTE | 2016-11-21 12:57 | EKG REPORT ---
SEVERITY:- ABNORMAL ECG - ATRIAL FIBRILLATION RIGHT BUNDLE BRANCH BLOCK CONSIDER ACUTE [place] - ANTEROLATERAL - L MAIN STENOSIS. : Confirmed by: Ankur Jaramillo MD 21-Nov-2016 12:56:46
[2016-11-21 17:41] LABS: CREATINE KINASE MB 2.47 ng/mL (<4.55); TROPONIN I 0.077 ng/mL
--- NOTE | 2016-11-21 19:33 | PDOC PROGRESS REPORT ---
Subjective Progress Note for:: 11/21/16 Subjective:: Patient about the same and has made very little progress. There is no significant change in general condition. Patient continues to need Jonathan- Synephrine drip for blood pressure but at the lower dose. Patient is noted to have some increased ST-T wave changes especially in the lateral chest lead. Because of EKG changes further troponin I and other cardiac enzymes were ordered. These are pending at the time of dictation. Patient remains intubated, sedated, patient however looks comfortable and in acute distress. Medications reviewed. Physical Exam Vital Signs: Temp Pulse Resp BP Pulse Ox 98.1 F 77 12 109/71 98 11/21/16 16:00 11/21/16 16:00 11/21/16 18:00 11/21/16 17:55 11/21/16 18:00 Intake & Output 11/20/16 11/21/16 11/22/16 06:59 06:59 06:59 Intake Total 5325 4374 2329 Output Total 2014 1435 1300 Balance 3310 2939 1029 Weight 72.1 kg 75.5 kg Exam: GENERAL: well-nourished and in no acute distress. Patient is intubated and sedated. Orientation cannot be checked HEAD: Atraumatic, normocephalic. EYES: Pupils equal round and reactive to light, extraocular movements could not be checked, sclera anicteric, conjunctiva are normal. ENT: TMs normal, nares patent, oropharynx clear without exudates. Moist mucous membranes. No oral ulcerations or bleeding gums noted NECK: supple without lymphadenopathy or JVD. Trachea is central. No cervical or axillary lymphadenopathy noted. Carotids are 2+ LUNGS: Breath sounds mostly clear to auscultation patient is noted to have bibasal crackles at the extreme bases CHEST: Palpation of the chest wall shows no significant chest wall tenderness or abnormalities. 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 ABDOMEN: Soft, no significant tenderness appreciated, normoactive bowel sounds. No guarding, no rebound. No rigidity noted . No masses appreciated. EXTREMITIES: Pedal pulses are 1-2+, no calf tenderness noted, 1+ pedal edema noted. No clubbing or cyanosis. NEUROLOGICAL: The patient cannot participate in the neurological exam but no facial asymmetry noted. Extremities slightly hypotonic PSYCH: This cannot be evaluated. Patient cannot participate. SKIN: No significant ecchymosis, rash, or signs of pruritus noted. MUSCULOSKELETAL EXAM: No significant joint swelling noted. Patient cannot participate in musculoskeletal exam Results Laboratory Results: 11/21/16 04:15 11/21/16 04:15 11/21/16 11/21/16 11/21/16 04:15 04:15 04:15 WBC 9.6 RBC 3.79 L Hgb 11.4 L Hct 35.0 L MCV 92 MCH 30.1 MCHC 32.6 RDW 15.4 H Plt Count 137 L Seg Neutrophils % 65.7 Lymphocytes % 22.1 Monocytes % 8.4 Eosinophils % 3.3 Basophils % 0.5 Absolute Neutrophils 6.3 Absolute Lymphocytes 2.1 Absolute Monocytes 0.8 Absolute Eosinophils 0.3 Absolute Basophils 0.1 Carbonic Acid 1.16 HCO3/H2CO3 Ratio 20:1 ABG pH 7.40 ABG pCO2 38.4 ABG pO2 97.8 ABG HCO3 23.4 ABG O2 Saturation 97.5 ABG Base Excess -1.2 FiO2 30% Sodium 139.7 Potassium 3.4 L Chloride 109 H Carbon Dioxide 26 Anion Gap 5 BUN 17 Creatinine 0.68 Est GFR ( Amer) > 60 Est GFR (Non-Af Amer) > 60 Glucose 89 Calcium 8.0 L Magnesium 1.7 Total Bilirubin 0.8 AST 15 L ALT 17 L Alkaline Phosphatase 60 Total Protein 4.2 L Albumin 2.0 L Prealbumin 9.5 L 11/19/16 09:30 Tracheal Aspirate Gram Stain - Final 11/19/16 09:30 Tracheal Aspirate Sputum Culture - Final REDUCED NORMAL LOLITA 11/19/16 11/19/16 11/19/16 02:02 08:49 14:17 Creatine Kinase 109 CK-MB (CK-2) 2.52 2.38 Troponin I 0.020 0.065 11/19/16 11/20/16 11/21/16 14:17 05:35 11:05 Creatine Kinase 64 24 L CK-MB (CK-2) 2.91 Troponin I 0.404 11/21/16 11/21/16 11/21/16 11:05 16:05 16:05 Creatine Kinase 25 L CK-MB (CK-2) 2.48 2.47 Troponin I 0.084 0.077 Impressions: Chest/Abdomen CTA 11/18/16 22:44 IMPRESSION: No evidence for pulmonary embolic disease. Small right pleural effusion is identified with some associated airspace consolidation most consistent with atelectatic changes. 2.3 cm in diameter spiculated mass in the right mid lung field anteriorly which may only represent focal airspace consolidation however the possibility of a mass cannot be excluded. Followup is recommended. Small pericardial effusion. Other findings as noted above Head CT 11/19/16 00:00 IMPRESSION: No acute intracranial abnormality identified. Chronic microvascular ischemic disease changes noted in the supratentorial white matter. KUB X-Ray 11/19/16 09:01 IMPRESSION: NG tube appears to be in proper position. No acute abnormality identified within the abdomen. Diffuse airspace opacity noted the lung bases. Chest X-Ray 11/21/16 06:00 IMPRESSION: No significant interval change. Assessment & Plan - Diagnosis (1) Elevated troponin I level Is this a current diagnosis for this admission?: Yes (2) Non-STEMI (non-ST elevated myocardial infarction) Is this a current diagnosis for this admission?: Yes (3) Pericardial effusion Is this a current diagnosis for this admission?: Yes (4) Atrial fibrillation Qualifiers: Atrial fibrillation type: chronic Qualified Code(s): I48.2 - Chronic atrial fibrillation Is this a current diagnosis for this admission?: Yes (5) Hypotension (arterial) Qualifiers: Hypotension type: other hypotension type Qualified Code(s): I95.89 - Other hypotension Is this a current diagnosis for this admission?: Yes (6) Lung mass Is this a current diagnosis for this admission?: Yes - Notes Notes: No significant changes in patient's condition, except for worsening EKG changes. Have ordered cardiac enzymes. Discussed with hospitalist. Aspirin and Plavix has been resumed. Bronchoscopy on hold. At this point medical and conservative management is being recommended. This was based on discussion with hospitalist. Elevated troponin I: This is in the non-STEMI range and is felt related to supply demand mismatch from atrial fibrillation with rapid ventricular response , hypoxemia, hypotension etc. Patient did have chest pain on presentation which was pleuritic, cannot rule out acute coronary syndrome but because of patient other significant comorbid diagnosis and also relatively normal normal overall LVEF, will recommend medical management with statins, beta blockers, ELIZABETH inhibitor, continuation of antiplatelet therapy. Anticoagulation relatively contraindicated in view of hemoptysis. Currently on beta-nhung. Patient felt not a candidate for heart catheterization at this point. Non-STEMI: Please see plans under elevated troponin I. Pericardial effusion: This is felt to be a small, there is no evidence of tamponade. Atrial fibrillation with rapid ventricular response: Currently has good heart rate control. May use amiodarone if needed. Use additional small doses of IV beta-blockers, if needed. Chronic anticoagulation not being started in view of hemoptysis. Arterial hypotension: Etiology not clear, could be sepsis related. Continue with vasopressor support. 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 Bronchoscopy procedure on hold. Continue to observe. - Time Time with patient: Greater than 35 minutes - CODE STATUS was discussed, patient remains full code. Surrogate decision-maker unchanged. Multiple medical problems were addressed. More than 50% of the time spent coordinating care, discussing management plans with involved caregivers. Management plans discussed with involved personnels. Medical decision making was of moderate to high complexity, patient's has multiple comorbidities. Medications reviewed and adjusted accordingly: Yes
[2016-11-21] MEDS: ATORVASTATIN CALCIUM 40 MG TABLET NG SCH (21:36)
[2016-11-21 23:36] LABS: CREATINE KINASE MB 2.01 ng/mL (<4.55); TROPONIN I 0.065 ng/mL
[2016-11-22] MEDS: PROPOFOL 100 ML IV PRN (02:53)
[2016-11-22] MEDS: NORMAL SALINE 1000 ML 1,000 ML IV PRN ×2 (05:45→21:22)
[2016-11-22] MEDS: PIPERACILLIN SODIUM/TAZOBACTAM 3.375 GM in NORMAL SALINE 100 ML IV SCH ×6 (05:45→23:50)
[2016-11-22 06:16] LABS: ARTERIAL BLOOD BASE EXCESS -2.1 mmol/L; ARTERIAL BLOOD O2 SATURATION 97.6 % (94-98)
[2016-11-22] MEDS: METOPROLOL TARTRATE 50 MG TABLET NG SCH ×3 (06:30→21:15)
[2016-11-22 06:31] LABS: ABSOLUTE EOSINOPHILS # (AUTO) 0.3 10^3/uL (0.0-0.6); ABSOLUTE LYMPHOCYTES (AUTO) 1.5 10^3/uL (0.5-4.7); ABSOLUTE MONOCYTES (AUTO) 0.6 10^3/uL (0.1-1.4); ABSOLUTE NEUT (AUTO) 4.8 10^3/uL (1.7-8.2); BASOPHILS % (AUTO) 0.4 % (0-2); EOSINOPHILS % (AUTO) 4.5 % (0-6); HEMATOCRIT 34.4 % (37.9-51.0); HEMOGLOBIN 11.3 g/dL (13.5-17.0); HGB HCT DIFFERENCE -0.5; LYMPHOCYTES % (AUTO) 20.8 % (13-45); MEAN CORPUSCULAR HEMOGLOBIN 30.1 pg (27.0-33.4); MEAN CORPUSCULAR VOLUME 91 fl (80-97); RED BLOOD COUNT 3.77 10^6/uL (4.35-5.55); SEGMENTED NEUTROPHILS % (AUTO) 66.3 % (42-78); WHITE BLOOD COUNT 7.2 10^3/uL (4.0-10.5)
[2016-11-22 06:50] LABS: ALANINE AMINOTRANSFERASE 16 U/L (21-72); ALKALINE PHOSPHATASE 57 U/L (38-126); ANION GAP 6 (5-19); ASPARTATE AMINO TRANSFERASE 13 U/L (17-59); BILIRUBIN,DIRECT 0.3 mg/dL (0.0-0.4); BILIRUBIN,TOTAL 0.6 mg/dL (0.2-1.3); BLOOD UREA NITROGEN 13 mg/dL (7-20); CALCIUM 7.9 mg/dL (8.4-10.2); CARBON DIOXIDE 24 mmol/L (22-30); CHLORIDE 113 mmol/L (98-107); CREATININE RESULT 0.64 mg/dL (0.52-1.25); GLUCOSE 111 mg/dL (75-110); MAGNESIUM 1.8 mg/dL (1.6-2.3); POTASSIUM 3.2 mmol/L (3.6-5.0); SODIUM 142.5 mmol/L (137-145); TOTAL PROTEIN 3.9 g/dL (6.3-8.2)
[2016-11-22] MEDS: LEVOTHYROXINE SODIUM 0.05 MG TABLET NG SCH (08:27)
[2016-11-22] MEDS: POTASSI CL 20 MEQ/50 ML RIDER 20 MEQ/50 ML RTUPB IV SCH ×2 (08:27→10:38)
--- NOTE | 2016-11-22 08:28 | RADIOLOGY REPORT (SQ) ---
EXAM DESCRIPTION: CHEST SINGLE VIEW COMPLETED DATE/TIME: 11/22/2016 8:08 am REASON FOR STUDY: acute resp failure/pna COMPARISON: CT chest 11/18/2016 Chest films 11/18/2016, 11/19/2016, 11/20/2016 EXAM PARAMETERS: NUMBER OF VIEWS: One view. TECHNIQUE: Single frontal radiographic view of the chest acquired. RADIATION DOSE: NA LIMITATIONS: Portable technique, EKG leads coiled over the chest. FINDINGS: Endotracheal tube tip 4 cm above the yifan. Right jugular central line tip superior vena cava. Nasogastric tube tip and side port in the stomach. LUNGS AND PLEURA: Trace pleural effusion on the right and left, stable. No pneumothorax. There is pulmonary vascular prominence, stable. Mild perihilar pulmonary edema, stable. Rounded density in the right middle lobe could represent a primary mass or rounded atelectasis, stabl e. There is patchy airspace disease at both bases, atelectasis versus pneumonia. MEDIASTINUM AND HILAR STRUCTURES: No masses. Contour normal. HEART AND VASCULAR STRUCTURES: Stable cardiomegaly BONES: Osteoporotic HARDWARE: As above OTHER: No other significant finding. IMPRESSION: Stable appearance of the chest with trace bilateral pleural effusions, and mild perihila r pulmonary edema. Stable left retrocardiac consolidation, right middle lobe mass versus round atele ctasis. Tubes and lines in good positioning TECHNICAL DOCUMENTATION: JOB ID: [id number]
--- NOTE | 2016-11-22 09:28 | PDOC PROGRESS REPORT ---
Subjective Progress Note for:: 11/22/16 Subjective:: Intubated and sedated Physical Exam Vital Signs: Temp Pulse Resp BP Pulse Ox 97.9 F 53 L 12 111/67 98 11/22/16 07:48 11/22/16 07:48 11/22/16 07:48 11/22/16 07:48 11/22/16 08:58 Intake & Output 11/21/16 11/22/16 11/23/16 06:59 06:59 06:59 Intake Total 4374 5007 35 Output Total 1435 7035 Balance 2939 3402 35 Weight 75.5 kg 77.8 kg General appearance: PRESENT: no acute distress Eye exam: PRESENT: conjunctiva pink. ABSENT: scleral icterus Mouth exam: PRESENT: moist, tongue midline Neck exam: ABSENT: JVD Respiratory exam: PRESENT: clear to auscultation jonathon. ABSENT: rales, rhonchi, wheezes Cardiovascular exam: PRESENT: RRR. ABSENT: diastolic murmur, rubs, systolic murmur GI/Abdominal exam: PRESENT: normal bowel sounds, soft. ABSENT: distended, guarding, mass, organolmegaly, rebound, tenderness Extremities exam: ABSENT: calf tenderness, clubbing, pedal edema Neurological exam: PRESENT: other - Sedated Psychiatric exam: PRESENT: other - Is sedated Skin exam: PRESENT: dry, intact, warm. ABSENT: cyanosis, rash Results Laboratory Results: 11/22/16 06:25 11/22/16 06:25 11/22/16 11/22/16 11/22/16 05:50 06:25 06:25 WBC 7.2 RBC 3.77 L Hgb 11.3 L Hct 34.4 L MCV 91 MCH 30.1 MCHC 33.0 RDW 16.0 H Plt Count 135 L Seg Neutrophils % 66.3 Lymphocytes % 20.8 Monocytes % 8.0 Eosinophils % 4.5 Basophils % 0.4 Absolute Neutrophils 4.8 Absolute Lymphocytes 1.5 Absolute Monocytes 0.6 Absolute Eosinophils 0.3 Absolute Basophils 0.0 Carbonic Acid 1.16 HCO3/H2CO3 Ratio 19:1 ABG pH 7.39 ABG pCO2 38.4 ABG pO2 100.6 H ABG HCO3 22.6 ABG O2 Saturation 97.6 ABG Base Excess -2.1 FiO2 30% Sodium 142.5 Potassium 3.2 L Chloride 113 H Carbon Dioxide 24 Anion Gap 6 BUN 13 Creatinine 0.64 Est GFR ( Amer) > 60 Est GFR (Non-Af Amer) > 60 Glucose 111 H Calcium 7.9 L Magnesium 1.8 Total Bilirubin 0.6 AST 13 L ALT 16 L Alkaline Phosphatase 57 Total Protein 3.9 L Albumin 2.0 L 11/19/16 09:30 Tracheal Aspirate Gram Stain - Final 11/19/16 09:30 Tracheal Aspirate Sputum Culture - Final REDUCED NORMAL LOLITA 11/19/16 11/19/16 11/19/16 02:02 08:49 14:17 Creatine Kinase 109 CK-MB (CK-2) 2.52 2.38 Troponin I 0.020 0.065 11/19/16 11/20/16 11/21/16 14:17 05:35 11:05 Creatine Kinase 64 24 L CK-MB (CK-2) 2.91 Troponin I 0.404 11/21/16 11/21/16 11/21/16 11:05 16:05 16:05 Creatine Kinase 25 L CK-MB (CK-2) 2.48 2.47 Troponin I 0.084 0.077 11/21/16 11/21/16 22:40 22:40 Creatine Kinase 23 L CK-MB (CK-2) 2.01 Troponin I 0.065 Impressions: Chest/Abdomen CTA 11/18/16 22:44 IMPRESSION: No evidence for pulmonary embolic disease. Small right pleural effusion is identified with some associated airspace consolidation most consistent with atelectatic changes. 2.3 cm in diameter spiculated mass in the right mid lung field anteriorly which may only represent focal airspace consolidation however the possibility of a mass cannot be excluded. Followup is recommended. Small pericardial effusion. Other findings as noted above Head CT 11/19/16 00:00 IMPRESSION: No acute intracranial abnormality identified. Chronic microvascular ischemic disease changes noted in the supratentorial white matter. KUB X-Ray 11/19/16 09:01 IMPRESSION: NG tube appears to be in proper position. No acute abnormality identified within the abdomen. Diffuse airspace opacity noted the lung bases. Chest X-Ray 11/22/16 06:00 IMPRESSION: Stable appearance of the chest with trace bilateral pleural effusions, and mild perihilar pulmonary edema. Stable left retrocardiac consolidation, right middle lobe mass versus round atelectasis. Tubes and lines in good positioning Assessment & Plan - Diagnosis (1) Chest pain Is this a current diagnosis for this admission?: YesPlan: Patient has had some elevation in his troponins. The patient has been evaluated by cardiology. Aspirin and Plavix has been restarted. Consideration of transfer to tertiary care was considered however the family agrees to wait and we will try to wean the patient off the ventilator to see what intervention if any he wants done. (2) Atrial fibrillation Qualifiers: Atrial fibrillation type: chronic Qualified Code(s): I48.2 - Chronic atrial fibrillation Is this a current diagnosis for this admission?: YesPlan: Stable (3) Congestive heart failure Is this a current diagnosis for this admission?: YesPlan: Cardiology is following (4) Lung mass Is this a current diagnosis for this admission?: YesPlan: Pulmonary medicine has been consulted for consideration of a bronchoscopy. We will hold on the bronchoscopy given the acute cardiac issues and continue aspirin and Plavix. We will try to wean the patient off the ventilator and once he wakes up will allow him to make a decision whether or not to pursue any further workup (5) Pneumonia Is this a current diagnosis for this admission?: YesPlan: Continue with Zosyn (6) Hypokalemia Is this a current diagnosis for this admission?: YesPlan: Will replace and continue to monitor. - Time Time Spent with patient: 25-34 minutes - Inpatient Certification Medical Necessity: Need Close Monitoring Due to Risk of Patient Decompensation, Need for IV Antibiotics
[2016-11-22] MEDS ORDERED: CLOPIDOGREL BISULFATE 75 MG TABLET PO SCH (10:00)
[2016-11-22] MEDS ORDERED: MORPHINE SULFATE 10 MG/ML INJ IV PRN (11:02)
[2016-11-22] MEDS: ENOXAPARIN SODIUM INJ 40 MG/0.4 ML DISP.SYRIN SUBCUT SCH (13:39)
[2016-11-22] MEDS: FAMOTIDINE INJ/PF 20 MG/2 ML SDV IV SCH ×2 (13:39→21:13)
--- NOTE | 2016-11-22 17:15 | PDOC PROGRESS REPORT ---
Subjective Progress Note for:: 11/22/16 Subjective:: intubated Physical Exam Vital Signs: Temp Pulse Resp BP Pulse Ox 97.9 F 53 L 12 111/67 98 11/22/16 07:48 11/22/16 07:48 11/22/16 07:48 11/22/16 07:48 11/22/16 08:58 Intake & Output 11/21/16 11/22/16 11/23/16 06:59 06:59 06:59 Intake Total 4374 5007 35 Output Total 1439 9937 Balance 2931 0865 35 Weight 75.5 kg 77.8 kg General appearance: PRESENT: no acute distress, disheveled, thin, well-developed Head exam: PRESENT: atraumatic, normocephalic Eye exam: PRESENT: conjunctiva pale Mouth exam: PRESENT: dry mucosa, neck supple, tongue midline, other - ET tube Neck exam: ABSENT: carotid bruit, JVD, lymphadenopathy, thyromegaly Respiratory exam: PRESENT: decreased breath sounds, prolonged expiratory phas, rales, rhonchi, symmetrical, unlabored Cardiovascular exam: PRESENT: irregular rhythm Pulses: PRESENT: normal radial pulses GI/Abdominal exam: PRESENT: normal bowel sounds, soft. ABSENT: distended, guarding, mass, organolmegaly, rebound, tenderness Rectal exam: PRESENT: deferred Gentrourinary exam: PRESENT: indwelling catheter Musculoskeletal exam: PRESENT: normal inspection Skin exam: PRESENT: dry, warm Results Laboratory Results: 11/22/16 06:25 11/22/16 06:25 11/22/16 11/22/16 11/22/16 05:50 06:25 06:25 WBC 7.2 RBC 3.77 L Hgb 11.3 L Hct 34.4 L MCV 91 MCH 30.1 MCHC 33.0 RDW 16.0 H Plt Count 135 L Seg Neutrophils % 66.3 Lymphocytes % 20.8 Monocytes % 8.0 Eosinophils % 4.5 Basophils % 0.4 Absolute Neutrophils 4.8 Absolute Lymphocytes 1.5 Absolute Monocytes 0.6 Absolute Eosinophils 0.3 Absolute Basophils 0.0 Carbonic Acid 1.16 HCO3/H2CO3 Ratio 19:1 ABG pH 7.39 ABG pCO2 38.4 ABG pO2 100.6 H ABG HCO3 22.6 ABG O2 Saturation 97.6 ABG Base Excess -2.1 FiO2 30% Sodium 142.5 Potassium 3.2 L Chloride 113 H Carbon Dioxide 24 Anion Gap 6 BUN 13 Creatinine 0.64 Est GFR ( Amer) > 60 Est GFR (Non-Af Amer) > 60 Glucose 111 H Calcium 7.9 L Magnesium 1.8 Total Bilirubin 0.6 AST 13 L ALT 16 L Alkaline Phosphatase 57 Total Protein 3.9 L Albumin 2.0 L 11/19/16 09:30 Tracheal Aspirate Gram Stain - Final 11/19/16 09:30 Tracheal Aspirate Sputum Culture - Final REDUCED NORMAL LOLITA 11/19/16 11/19/16 11/19/16 02:02 08:49 14:17 Creatine Kinase 109 CK-MB (CK-2) 2.52 2.38 Troponin I 0.020 0.065 11/19/16 11/20/16 11/21/16 14:17 05:35 11:05 Creatine Kinase 64 24 L CK-MB (CK-2) 2.91 Troponin I 0.404 11/21/16 11/21/16 11/21/16 11:05 16:05 16:05 Creatine Kinase 25 L CK-MB (CK-2) 2.48 2.47 Troponin I 0.084 0.077 11/21/16 11/21/16 22:40 22:40 Creatine Kinase 23 L CK-MB (CK-2) 2.01 Troponin I 0.065 Impressions: Chest/Abdomen CTA 11/18/16 22:44 IMPRESSION: No evidence for pulmonary embolic disease. Small right pleural effusion is identified with some associated airspace consolidation most consistent with atelectatic changes. 2.3 cm in diameter spiculated mass in the right mid lung field anteriorly which may only represent focal airspace consolidation however the possibility of a mass cannot be excluded. Followup is recommended. Small pericardial effusion. Other findings as noted above Head CT 11/19/16 00:00 IMPRESSION: No acute intracranial abnormality identified. Chronic microvascular ischemic disease changes noted in the supratentorial white matter. KUB X-Ray 11/19/16 09:01 IMPRESSION: NG tube appears to be in proper position. No acute abnormality identified within the abdomen. Diffuse airspace opacity noted the lung bases. Chest X-Ray 11/22/16 06:00 IMPRESSION: Stable appearance of the chest with trace bilateral pleural effusions, and mild perihilar pulmonary edema. Stable left retrocardiac consolidation, right middle lobe mass versus round atelectasis. 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
[2016-11-22] MEDS: DOCUSATE SODIUM 100 MG CAPSULE PO SCH ×2 (18:01→18:02)
[2016-11-22] MEDS: ASPIRIN 325 MG TABLET PO SCH (18:01)
--- NOTE | 2016-11-22 18:09 | PDOC PROGRESS REPORT ---
Subjective Progress Note for:: 11/22/16 Subjective:: Patient about the same and has made very little progress. There is no significant change in general condition. Patient continues to need Jonathan- Synephrine drip for blood pressure but at the lower dose. Dr. Bernstein and primary care MDs note reviewed. Patient had been made a DNR. Medications reviewed. Physical Exam Vital Signs: Temp Pulse Resp BP Pulse Ox 98.8 F 106 H 25 H 120/62 94 11/22/16 16:00 11/22/16 16:00 11/22/16 16:00 11/22/16 16:00 11/22/16 16:00 Intake & Output 11/21/16 11/22/16 11/23/16 06:59 06:59 06:59 Intake Total 4374 5007 35 Output Total 1435 2335 655 Balance 2939 8692 -620 Weight 75.5 kg 77.8 kg Exam: GENERAL: well-nourished and in no acute distress. Patient is intubated and sedated. Orientation cannot be checked HEAD: Atraumatic, normocephalic. EYES: Pupils equal round and reactive to light, extraocular movements could not be checked, sclera anicteric, conjunctiva are normal. ENT: TMs normal, nares patent, oropharynx clear without exudates. Moist mucous membranes. No oral ulcerations or bleeding gums noted NECK: supple without lymphadenopathy or JVD. Trachea is central. No cervical or axillary lymphadenopathy noted. Carotids are 2+ LUNGS: Breath sounds mostly clear to auscultation patient is noted to have bibasal crackles at the extreme bases CHEST: Palpation of the chest wall shows no significant chest wall tenderness or abnormalities. HEART: [place] [employer], No PSH, 2/6 ELEANOR aortic area, 1/6 martinez systolic murmur mitral area , no rubs or gallops. ABDOMEN: Soft, no significant tenderness appreciated, normoactive bowel sounds. No guarding, no rebound. No rigidity noted . No masses appreciated. EXTREMITIES: Pedal pulses are 1-2+, no calf tenderness noted, 1+ pedal edema noted. No clubbing or cyanosis. NEUROLOGICAL: The patient cannot participate in the neurological exam but no facial asymmetry noted. Extremities slightly hypotonic PSYCH: This cannot be evaluated. Patient cannot participate. SKIN: No significant ecchymosis, rash, or signs of pruritus noted. MUSCULOSKELETAL EXAM: No significant joint swelling noted. Patient cannot participate in musculoskeletal exam Results Laboratory Results: 11/22/16 06:25 11/22/16 06:25 11/22/16 11/22/16 11/22/16 05:50 06:25 06:25 WBC 7.2 RBC 3.77 L Hgb 11.3 L Hct 34.4 L MCV 91 MCH 30.1 MCHC 33.0 RDW 16.0 H Plt Count 135 L Seg Neutrophils % 66.3 Lymphocytes % 20.8 Monocytes % 8.0 Eosinophils % 4.5 Basophils % 0.4 Absolute Neutrophils 4.8 Absolute Lymphocytes 1.5 Absolute Monocytes 0.6 Absolute Eosinophils 0.3 Absolute Basophils 0.0 Carbonic Acid 1.16 HCO3/H2CO3 Ratio 19:1 ABG pH 7.39 ABG pCO2 38.4 ABG pO2 100.6 H ABG HCO3 22.6 ABG O2 Saturation 97.6 ABG Base Excess -2.1 FiO2 30% Sodium 142.5 Potassium 3.2 L Chloride 113 H Carbon Dioxide 24 Anion Gap 6 BUN 13 Creatinine 0.64 Est GFR ( Amer) > 60 Est GFR (Non-Af Amer) > 60 Glucose 111 H Calcium 7.9 L Magnesium 1.8 Total Bilirubin 0.6 AST 13 L ALT 16 L Alkaline Phosphatase 57 Total Protein 3.9 L Albumin 2.0 L 11/19/16 11/19/16 11/19/16 02:02 08:49 14:17 Creatine Kinase 109 CK-MB (CK-2) 2.52 2.38 Troponin I 0.020 0.065 11/19/16 11/20/16 11/21/16 14:17 05:35 11:05 Creatine Kinase 64 24 L CK-MB (CK-2) 2.91 Troponin I 0.404 11/21/16 11/21/16 11/21/16 11:05 16:05 16:05 Creatine Kinase 25 L CK-MB (CK-2) 2.48 2.47 Troponin I 0.084 0.077 11/21/16 11/21/16 22:40 22:40 Creatine Kinase 23 L CK-MB (CK-2) 2.01 Troponin I 0.065 EKG Comments: Telemetry shows atrial fibrillation with controlled ventricular response. Impressions: Chest/Abdomen CTA 11/18/16 22:44 IMPRESSION: No evidence for pulmonary embolic disease. Small right pleural effusion is identified with some associated airspace consolidation most consistent with atelectatic changes. 2.3 cm in diameter spiculated mass in the right mid lung field anteriorly which may only represent focal airspace consolidation however the possibility of a mass cannot be excluded. Followup is recommended. Small pericardial effusion. Other findings as noted above Head CT 11/19/16 00:00 IMPRESSION: No acute intracranial abnormality identified. Chronic microvascular ischemic disease changes noted in the supratentorial white matter. KUB X-Ray 11/19/16 09:01 IMPRESSION: NG tube appears to be in proper position. No acute abnormality identified within the abdomen. Diffuse airspace opacity noted the lung bases. Chest X-Ray 11/22/16 06:00 IMPRESSION: Stable appearance of the chest with trace bilateral pleural effusions, and mild perihilar pulmonary edema. Stable left retrocardiac consolidation, right middle lobe mass versus round atelectasis. Tubes and lines in good positioning Assessment & Plan - Diagnosis (1) Elevated troponin I level Is this a current diagnosis for this admission?: Yes (2) Non-STEMI (non-ST elevated myocardial infarction) Is this a current diagnosis for this admission?: Yes (3) Pericardial effusion Is this a current diagnosis for this admission?: Yes (4) Atrial fibrillation Qualifiers: Atrial fibrillation type: chronic Qualified Code(s): I48.2 - Chronic atrial fibrillation Is this a current diagnosis for this admission?: Yes (5) Hypotension (arterial) Qualifiers: Hypotension type: other hypotension type Qualified Code(s): I95.89 - Other hypotension Is this a current diagnosis for this admission?: Yes (6) Lung mass Is this a current diagnosis for this admission?: Yes - Notes Notes: No significant changes in patient's condition. Discussed with hospitalist. Aspirin and Plavix has been resumed yesterday. Bronchoscopy on hold. At this point medical and conservative management is being recommended. This was based on discussion with hospitalist. Elevated troponin I: This is in the non-STEMI range and is felt related to supply demand mismatch from atrial fibrillation with rapid ventricular response , hypoxemia, hypotension etc. Patient did have chest pain on presentation which was pleuritic, cannot rule out acute coronary syndrome but because of patient other significant comorbid diagnosis and also relatively normal normal overall LVEF, will recommend medical management with statins, beta blockers, ELIZABETH inhibitor, continuation of antiplatelet therapy. Anticoagulation relatively contraindicated in view of hemoptysis. Currently on beta-nhung. Patient felt not a candidate for heart catheterization at this point. Non-STEMI: Please see plans under elevated troponin I. Pericardial effusion: This is felt to be a small, there is no evidence of tamponade. Atrial fibrillation with rapid ventricular response: Currently has good heart rate control. May use amiodarone if needed. Use additional small doses of IV beta-blockers, if needed. Chronic anticoagulation not being started in view of hemoptysis. Arterial hypotension: Etiology not clear, could be sepsis related. Continue with vasopressor support. 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 Bronchoscopy procedure on hold. Continue to observe. CODE STATUS is now DNR. However will continue aggressive medical management. - Time Time with patient: 15-25 minutes - CODE STATUS : was discussed, patient remains DO NOT RESUSCITATE. Surrogate decision-maker patient's daughter. Multiple medical problems were addressed. Multiple medical problems were addressed. More than 50% of the time spent coordinating care, discussing management plans with involved caregivers. Management plans discussed with involved personnels. Medical decision making was of moderate to high complexity, patient's has multiple comorbidities. Medications reviewed and adjusted accordingly: Yes
[2016-11-22] MEDS: ATORVASTATIN CALCIUM 40 MG TABLET NG SCH (21:15)
[2016-11-23] MEDS: NORMAL SALINE 1000 ML 1,000 ML IV PRN (05:45)
[2016-11-23] MEDS: PIPERACILLIN SODIUM/TAZOBACTAM 3.375 GM in NORMAL SALINE 100 ML IV SCH ×2 (05:45→11:03)
[2016-11-23] MEDS: METOPROLOL TARTRATE 50 MG TABLET NG SCH ×2 (05:51→14:09)
[2016-11-23 06:05] LABS: ABSOLUTE BASOPHILS # (AUTO) 0.1 10^3/uL (0.0-0.2); ABSOLUTE EOSINOPHILS # (AUTO) 0.3 10^3/uL (0.0-0.6); ABSOLUTE LYMPHOCYTES (AUTO) 1.1 10^3/uL (0.5-4.7); ABSOLUTE MONOCYTES (AUTO) 0.4 10^3/uL (0.1-1.4); ABSOLUTE NEUT (AUTO) 3.1 10^3/uL (1.7-8.2); BASOPHILS % (AUTO) 1.3 % (0-2); EOSINOPHILS % (AUTO) 5.2 % (0-6); HEMATOCRIT 34.1 % (37.9-51.0); HEMOGLOBIN 10.9 g/dL (13.5-17.0); HGB HCT DIFFERENCE -1.4; LYMPHOCYTES % (AUTO) 22.5 % (13-45); MEAN CORPUSCULAR HEMOGLOBIN 29.8 pg (27.0-33.4); MEAN CORPUSCULAR HGB CONC 32.1 g/dL (32.0-36.0); MEAN CORPUSCULAR VOLUME 93 fl (80-97); RED BLOOD COUNT 3.67 10^6/uL (4.35-5.55); RED CELL DISTRIBUTION WIDTH 15.9 % (11.5-14.0); WHITE BLOOD COUNT 4.8 10^3/uL (4.0-10.5)
[2016-11-23 06:24] LABS: ANION GAP 6 (5-19); BLOOD UREA NITROGEN 10 mg/dL (7-20); CALCIUM 8.1 mg/dL (8.4-10.2); CARBON DIOXIDE 23 mmol/L (22-30); CHLORIDE 117 mmol/L (98-107); CREATININE RESULT 0.68 mg/dL (0.52-1.25); GLUCOSE 76 mg/dL (75-110); MAGNESIUM 1.7 mg/dL (1.6-2.3); POTASSIUM 3.5 mmol/L (3.6-5.0); SODIUM 145.7 mmol/L (137-145)
[2016-11-23 07:01] LABS: ARTERIAL BLOOD BASE EXCESS -2.4 mmol/L; ARTERIAL BLOOD O2 SATURATION 97.2 % (94-98)
--- NOTE | 2016-11-23 08:00 | RADIOLOGY REPORT (SQ) ---
EXAM DESCRIPTION: CHEST SINGLE VIEW COMPLETED DATE/TIME: 11/23/2016 7:47 am REASON FOR STUDY: resp failure COMPARISON: Chest x-ray 11/22/2016. EXAM PARAMETERS: NUMBER OF VIEWS: One view. TECHNIQUE: Single frontal radiographic view of the chest acquired. RADIATION DOSE: NA LIMITATIONS: None. FINDINGS: LUNGS AND PLEURA: Mild interval increase in the small bilateral pleural effusions and biba silar airspace opacities. No pneumothorax. MEDIASTINUM AND HILAR STRUCTURES: No masses. Contour normal. HEART AND VASCULAR STRUCTURES: The heart is mildly enlarged. There is central vascular congestion. BONES: No acute findings. HARDWARE: The endotracheal tube and the enteric tube have been removed. Right IJ central catheter wi th the tip overlying the region of the SVC. IMPRESSION: Mild interval increase in the small bilateral pleural effusions and bibasilar airspace o pacities. Cardiomegaly and central vascular congestion. TECHNICAL DOCUMENTATION: JOB ID: [id number]
[2016-11-23] MEDS ORDERED: METOPROLOL TARTRATE PF/INJ 5 MG/5 ML SDV IV PRN (08:22)
--- NOTE | 2016-11-23 09:27 | PDOC PROGRESS REPORT ---
Subjective Progress Note for:: 11/23/16 Subjective:: Patient complains of cough. He is alert enough to state that he wants no intervention for his lung mass. Physical Exam Vital Signs: Temp Pulse Resp BP Pulse Ox 97.6 F 116 H 20 124/70 97 11/23/16 07:21 11/23/16 07:21 11/23/16 07:21 11/23/16 07:21 11/23/16 07:21 Intake & Output 11/22/16 11/23/16 11/24/16 06:59 06:59 06:59 Intake Total 5007 3895 Output Total 8965 1165 Balance 9588 3960 Weight 77.8 kg 80.3 kg General appearance: PRESENT: mild distress Eye exam: PRESENT: conjunctiva pink. ABSENT: scleral icterus Mouth exam: PRESENT: moist, tongue midline Neck exam: ABSENT: JVD Respiratory exam: PRESENT: clear to auscultation jonathon. ABSENT: rales, rhonchi, wheezes Cardiovascular exam: PRESENT: irregular rhythm. ABSENT: diastolic murmur, rubs , systolic murmur GI/Abdominal exam: PRESENT: normal bowel sounds, soft. ABSENT: distended, guarding, mass, organolmegaly, rebound, tenderness Extremities exam: ABSENT: calf tenderness, clubbing, pedal edema Neurological exam: PRESENT: awake, oriented to person, oriented to place, oriented to situation. ABSENT: oriented to time Psychiatric exam: PRESENT: appropriate affect Skin exam: PRESENT: dry, intact, warm. ABSENT: cyanosis, rash Results Laboratory Results: 11/23/16 05:45 11/23/16 05:45 11/23/16 11/23/16 11/23/16 05:45 05:45 06:00 WBC 4.8 RBC 3.67 L Hgb 10.9 L Hct 34.1 L MCV 93 MCH 29.8 MCHC 32.1 RDW 15.9 H Plt Count 117 L Seg Neutrophils % 63.0 Lymphocytes % 22.5 Monocytes % 8.0 Eosinophils % 5.2 Basophils % 1.3 Absolute Neutrophils 3.1 Absolute Lymphocytes 1.1 Absolute Monocytes 0.4 Absolute Eosinophils 0.3 Absolute Basophils 0.1 Carbonic Acid 1.17 HCO3/H2CO3 Ratio 19:1 ABG pH 7.38 ABG pCO2 39.0 ABG pO2 95.1 ABG HCO3 22.5 ABG O2 Saturation 97.2 ABG Base Excess -2.4 FiO2 4 LPM Sodium 145.7 H Potassium 3.5 L Chloride 117 H Carbon Dioxide 23 Anion Gap 6 BUN 10 Creatinine 0.68 Est GFR ( Amer) > 60 Est GFR (Non-Af Amer) > 60 Glucose 76 Calcium 8.1 L Magnesium 1.7 11/19/16 11/19/16 11/19/16 02:02 08:49 14:17 Creatine Kinase 109 CK-MB (CK-2) 2.52 2.38 Troponin I 0.020 0.065 11/19/16 11/20/16 11/21/16 14:17 05:35 11:05 Creatine Kinase 64 24 L CK-MB (CK-2) 2.91 Troponin I 0.404 11/21/16 11/21/16 11/21/16 11:05 16:05 16:05 Creatine Kinase 25 L CK-MB (CK-2) 2.48 2.47 Troponin I 0.084 0.077 11/21/16 11/21/16 22:40 22:40 Creatine Kinase 23 L CK-MB (CK-2) 2.01 Troponin I 0.065 Impressions: Chest/Abdomen CTA 11/18/16 22:44 IMPRESSION: No evidence for pulmonary embolic disease. Small right pleural effusion is identified with some associated airspace consolidation most consistent with atelectatic changes. 2.3 cm in diameter spiculated mass in the right mid lung field anteriorly which may only represent focal airspace consolidation however the possibility of a mass cannot be excluded. Followup is recommended. Small pericardial effusion. Other findings as noted above Head CT 11/19/16 00:00 IMPRESSION: No acute intracranial abnormality identified. Chronic microvascular ischemic disease changes noted in the supratentorial white matter. KUB X-Ray 11/19/16 09:01 IMPRESSION: NG tube appears to be in proper position. No acute abnormality identified within the abdomen. Diffuse airspace opacity noted the lung bases. Chest X-Ray 11/23/16 06:00 IMPRESSION: Mild interval increase in the small bilateral pleural effusions and bibasilar airspace opacities. Cardiomegaly and central vascular congestion. Assessment & Plan - Diagnosis (1) Chest pain Is this a current diagnosis for this admission?: YesPlan: Elevated troponins come consistent with a non-STEMI. Continue with aspirin and Plavix. (2) Atrial fibrillation Qualifiers: Atrial fibrillation type: chronic Qualified Code(s): I48.2 - Chronic atrial fibrillation Is this a current diagnosis for this admission?: YesPlan: Patient is somewhat tachycardic and was having trouble taking p.o. Will give as needed IV Lopressor. (3) Congestive heart failure Is this a current diagnosis for this admission?: YesPlan: Cardiology is following (4) Lung mass Is this a current diagnosis for this admission?: YesPlan: The patient and his family agreed for no intervention of this mass which is probably malignancy. (5) Pneumonia Is this a current diagnosis for this admission?: YesPlan: Continue with Zosyn (6) Hypokalemia Is this a current diagnosis for this admission?: YesPlan: Will replace and continue to monitor. - Time Time Spent with patient: 25-34 minutes - Plan Summary Plan Summary: We will discuss with family whether or not they want just comfort care, or if they would like to continue with treatment of his pneumonia and other problems.
[2016-11-23] MEDS ORDERED: POTASSI CL 20 MEQ/50 ML RIDER 20 MEQ/50 ML RTUPB IV ONE (10:00)
[2016-11-23] MEDS: FAMOTIDINE INJ/PF 20 MG/2 ML SDV IV SCH (11:03)
[2016-11-23] MEDS: ASPIRIN 325 MG TABLET PO SCH (11:09)
[2016-11-23] MEDS: DOCUSATE SODIUM 100 MG CAPSULE PO SCH (11:09)
[2016-11-23] MEDS: LEVOTHYROXINE SODIUM 0.05 MG TABLET NG SCH (11:09)
[2016-11-23] MEDS ORDERED: FUROSEMIDE 40 MG TABLET PO SCH (13:00)
[2016-11-23] MEDS ORDERED: FUROSEMIDE 20 MG TABLET PO ONE (14:00)
[2016-11-23] MEDS ORDERED: FUROSEMIDE INJ/PF 20 MG/2 ML SDV IV ONE (14:30)
[2016-11-23] MEDS ORDERED: DILTIAZEM HCL INJ 25 MG/5 ML VIAL ONE (14:34)
[2016-11-23 14:42] VITALS: BP 145/75
[2016-11-23] MEDS ORDERED: MORPHINE SULFATE 10 MG/ML INJ IV ONE (15:00)
--- NOTE | 2016-11-23 15:06 | Death Summary ---
Summary Date : 11/23/16 Time of :: 14:57 Autopsy: No Resuscitation Status: Do Not Resuscitate - Final Diagnosis (1) Chest pain Is this a current diagnosis for this admission?: Yes (2) Atrial fibrillation Is this a current diagnosis for this admission?: Yes (3) Congestive heart failure Is this a current diagnosis for this admission?: Yes (4) Lung mass Is this a current diagnosis for this admission?: Yes (5) Pneumonia Is this a current diagnosis for this admission?: Yes (6) Hypokalemia Is this a current diagnosis for this admission?: Yes (7) Non-STEMI (non-ST elevated myocardial infarction) Is this a current diagnosis for this admission?: Yes Hospital Course:: 6-year-old gentleman who presented with chest pain. The patient on CT scan was noted to have a 2.3 the right middle lobe mass. Shortly after admission he began developing hemoptysis. He was noted to be hypoxic and was transferred to the intensive care unit. He was intubated and was noted to have positive troponins consistent with an acute non-STEMI. The case was discussed with the daughter and in light of the lung mass she decided that no further workup would be done at this time and we weaned him off the ventilator and extubated. He was moved to the floor and on the day of his he became tachycardic and hypoxic and required morphine. He at 14:57 on November 23, 2016. Cause of #1 lung cancer. Contributing factors include coronary artery disease and non-STEMI.
[2016-11-23] MEDS ORDERED: MORPHINE SULFATE 60 MG/60 ML RTUINJ IV PRN (15:09)
--- NOTE | 2016-11-23 15:44 | PDOC PROGRESS REPORT ---
Subjective Progress Note for:: 11/23/16 Subjective:: Patient was extubated yesterday and was moved to the floor. Patient was seen on morning rounds at around 12 mid day. At that time patient was noted to be somewhat tachypneic. JVP was noted to be elevated. I did order p.o. Lasix but then I was told by the nurse that patient is not able to swallow therefore that order was changed to IV Lasix. I did talk to patient's son-in-law and discussed in grave prognosis overall. Patient had been made a DNR. Family thinking about comfort care. However they had not made a final decision when I saw the patient earlier today. Medications reviewed Physical Exam Vital Signs: Temp Pulse Resp BP Pulse Ox 97.6 F 116 H 20 124/70 97 11/23/16 07:21 11/23/16 07:21 11/23/16 07:21 11/23/16 07:21 11/23/16 07:21 Intake & Output 11/22/16 11/23/16 11/24/16 06:59 06:59 06:59 Intake Total 5007 3895 Output Total 2335 1165 Balance 2672 2730 Weight 77.8 kg 80.3 kg Exam: GENERAL: well-nourished and in no acute distress. Patient is alert but not oriented to place time but oriented to person. Patient does recognize his son- in-law. HEAD: Atraumatic, normocephalic. EYES: Pupils equal round and reactive to light, extraocular movements intact, sclera anicteric, conjunctiva are normal. ENT: TMs normal, nares patent, oropharynx clear without exudates. Moist mucous membranes. No oral ulcerations or bleeding gums noted NECK: supple without lymphadenopathy, JVP is elevated at around 10 cm. Trachea is central. No cervical or axillary lymphadenopathy noted. Carotids are 2+ LUNGS: Breath sounds bibasilar fine crackles at bases. No significant dullness noted. CHEST: Palpation of chest wall shows no significant chest wall tenderness. HEART: [place] [employer], No PSH, 2/6 ELEANOR aortic area, 1/6 martinez systolic murmur mitral area, rubs or gallops. ABDOMEN: Soft, no significant tenderness appreciated, normoactive bowel sounds. No guarding, no rebound. No rigidity noted . No masses appreciated. EXTREMITIES: Pedal pulses are 1-2+, no calf tenderness noted, 1-2 + pedal edema noted. No clubbing or cyanosis. NEUROLOGICAL: Patient is alert but is not able to participate in neurological exam because of patient's current mental status PSYCH: Patient cannot participate in a neurologic and psych exam because of the patient's current mental status SKIN: No significant ecchymosis, rash, ulcerations or signs of pruritus noted. MUSCULOSKELETAL EXAM: No significant joint swelling noted. Results Laboratory Results: 11/23/16 05:45 11/23/16 05:45 11/23/16 11/23/16 11/23/16 05:45 05:45 06:00 WBC 4.8 RBC 3.67 L Hgb 10.9 L Hct 34.1 L MCV 93 MCH 29.8 MCHC 32.1 RDW 15.9 H Plt Count 117 L Seg Neutrophils % 63.0 Lymphocytes % 22.5 Monocytes % 8.0 Eosinophils % 5.2 Basophils % 1.3 Absolute Neutrophils 3.1 Absolute Lymphocytes 1.1 Absolute Monocytes 0.4 Absolute Eosinophils 0.3 Absolute Basophils 0.1 Carbonic Acid 1.17 HCO3/H2CO3 Ratio 19:1 ABG pH 7.38 ABG pCO2 39.0 ABG pO2 95.1 ABG HCO3 22.5 ABG O2 Saturation 97.2 ABG Base Excess -2.4 FiO2 4 LPM Sodium 145.7 H Potassium 3.5 L Chloride 117 H Carbon Dioxide 23 Anion Gap 6 BUN 10 Creatinine 0.68 Est GFR ( Amer) > 60 Est GFR (Non-Af Amer) > 60 Glucose 76 Calcium 8.1 L Magnesium 1.7 11/19/16 11/19/16 11/19/16 02:02 08:49 14:17 Creatine Kinase 109 CK-MB (CK-2) 2.52 2.38 Troponin I 0.020 0.065 11/19/16 11/20/16 11/21/16 14:17 05:35 11:05 Creatine Kinase 64 24 L CK-MB (CK-2) 2.91 Troponin I 0.404 11/21/16 11/21/16 11/21/16 11:05 16:05 16:05 Creatine Kinase 25 L CK-MB (CK-2) 2.48 2.47 Troponin I 0.084 0.077 11/21/16 11/21/16 22:40 22:40 Creatine Kinase 23 L CK-MB (CK-2) 2.01 Troponin I 0.065 Impressions: Chest/Abdomen CTA 11/18/16 22:44 IMPRESSION: No evidence for pulmonary embolic disease. Small right pleural effusion is identified with some associated airspace consolidation most consistent with atelectatic changes. 2.3 cm in diameter spiculated mass in the right mid lung field anteriorly which may only represent focal airspace consolidation however the possibility of a mass cannot be excluded. Followup is recommended. Small pericardial effusion. Other findings as noted above Head CT 11/19/16 00:00 IMPRESSION: No acute intracranial abnormality identified. Chronic microvascular ischemic disease changes noted in the supratentorial white matter. KUB X-Ray 11/19/16 09:01 IMPRESSION: NG tube appears to be in proper position. No acute abnormality identified within the abdomen. Diffuse airspace opacity noted the lung bases. Chest X-Ray 11/23/16 06:00 IMPRESSION: Mild interval increase in the small bilateral pleural effusions and bibasilar airspace opacities. Cardiomegaly and central vascular congestion. Assessment & Plan - Diagnosis (1) Elevated troponin I level Is this a current diagnosis for this admission?: Yes (2) Non-STEMI (non-ST elevated myocardial infarction) Is this a current diagnosis for this admission?: Yes (3) Pericardial effusion Is this a current diagnosis for this admission?: Yes (4) Atrial fibrillation Qualifiers: Atrial fibrillation type: chronic Qualified Code(s): I48.2 - Chronic atrial fibrillation Is this a current diagnosis for this admission?: Yes (5) Hypotension (arterial) Qualifiers: Hypotension type: other hypotension type Qualified Code(s): I95.89 - Other hypotension Is this a current diagnosis for this admission?: Yes (6) Lung mass Is this a current diagnosis for this admission?: Yes (7) Congestive heart failure Qualifiers: Congestive heart failure type: diastolic Is this a current diagnosis for this admission?: Yes - Notes Notes: Start lasix 20 mg po daily subsequently switched to IV Lasix. Elevated troponin I: This is in the non-STEMI range Patient felt not a candidate for heart catheterization at this point. Medical management is the plan. Non-STEMI: Please see plans under elevated troponin I. Pericardial effusion: This is felt to be a small, there is no evidence of tamponade. Atrial fibrillation with rapid ventricular response: Currently has good heart rate control. May use amiodarone if needed. Use additional small doses of IV beta-blockers, if needed. Chronic anticoagulation not being started in view of hemoptysis. Arterial hypotension: This has stabilized. Lung mass: Appearance on CT suggest malignancy. Bronchoscopy procedure on hold. Continue to observe. Congestive heart failure: Today on exam patient noted to be in CHF. Have ordered IV Lasix. Will follow expectantly but prognosis grave. CODE STATUS is now DNR. Family is thinking about making him a comfort care. Do not feel patient would be able to undertake any therapy for presumed lung cancer because of marked generalized weakness. - Time Time with patient: 15-25 minutes - CODE STATUS : was discussed, patient remains DO NOT RESUSCITATE. Surrogate decision-maker unchanged. Multiple medical problems were addressed. More than 50% of the time spent coordinating care, discussing management plans with involved caregivers. Management plans discussed with involved personnels. Medical decision making was of moderate to high complexity, patient's has multiple comorbidities. Medications reviewed and adjusted accordingly: Yes
[2016-11-24] MEDS ORDERED: FUROSEMIDE INJ/PF 20 MG/2 ML SDV IV SCH (10:00)
[2016-11-24] MEDS ORDERED: FUROSEMIDE 20 MG TABLET PO SCH (10:00)
== END 2016-11-23 16:15 ==
LOC: ER 21:36 → EH 11-19 00:36 → 4N 11-19 02:41 → ICU 11-19 07:43 → 3W 11-22 22:19
PROVIDERS: ADMIT Internal Medicine; ATTEND Internal Medicine
PROC: 02HV33Z Insertion of Infusion Device into Superior Vena Cava, Percutaneous Approach (ICD-10-PCS; principal; 2016-11-19)
PROC: 5A1945Z Respiratory Ventilation, 24-96 Consecutive Hours (ICD-10-PCS; 2016-11-19)
PROC: 0BH17EZ Insertion of Endotracheal Airway into Trachea, Via Natural or Artificial Opening (ICD-10-PCS; 2016-11-19)
DX: I21.4 Non-ST elevation (NSTEMI) myocardial infarction (principal); J18.9 Pneumonia, unspecified organism; C34.91 Malignant neoplasm of unspecified part of right bronchus or lung; I31.3 Pericardial effusion (noninflammatory); J91.8 Pleural effusion in other conditions classified elsewhere; R04.2 Hemoptysis; I25.10 Atherosclerotic heart disease of native coronary artery without angina pectoris; Z51.5 Encounter for palliative care; Z95.5 Presence of coronary angioplasty implant and graft; E03.9 Hypothyroidism, unspecified; M10.9 Gout, unspecified; I11.0 Hypertensive heart disease with heart failure; I50.9 Heart failure, unspecified; I95.89 Other hypotension; I48.2 Chronic atrial fibrillation; E78.5 Hyperlipidemia, unspecified; R09.02 Hypoxemia; Z90.49 Acquired absence of other specified parts of digestive tract; Z87.891 Personal history of nicotine dependence; Z82.49 Family history of ischemic heart disease and other diseases of the circulatory system; Z79.899 Other long term (current) drug therapy; Z79.02 Long term (current) use of antithrombotics/antiplatelets; R91.8 Other nonspecific abnormal finding of lung field; E87.6 Hypokalemia; Z66 Do not resuscitate; Z85.038 Personal history of other malignant neoplasm of large intestine
CPT/HCPCS: 31500; 36415; 70450; 71010; 71275; 74000; 80048; 80053; 80061; 82378; 82550; 82553; 82803; 82962; 83735; 83880; 84134; 84443; 84478; 84484; 85025; 85610; 85652; 85730; 87070; 87205; 93005; 93010; 93306; 94002; 94003; 99285; C1751; J0330; J1160; J1642; J1644; J1650; J1940; J2250; J2270; J2370; J2543; J2704; J3480; J3490; J7030; J7060; S0028